=== PATIENT | female | born 1990 | race Caucasian/White ===

== ENCOUNTER → 2017-09-01 | Outpatient (CLI) | payer BC, OTHER ==
--- NOTE | 2017-09-02 10:58 | XR ---
EXAMINATION TYPE: XR chest 2V DATE OF EXAM: 09/01/2017 COMPARISON: NONE HISTORY: Chest tightness, left clavicle pain, and left shoulder pain for one week TECHNIQUE: Frontal and lateral views of the chest are obtained. FINDINGS: There is no focal air space opacity, pleural effusion, or pneumothorax seen. The cardiac silhouette size is within normal limits. The osseous structures are intact. IMPRESSION: No acute cardiopulmonary process.
== END | disposition home or self-care (01) ==
LOC: RADXRMAIN 15:35
PROVIDERS: ATTEND Family Medicine
DX: R07.9 Chest pain, unspecified (principal)
CPT/HCPCS: 71046

== ENCOUNTER 2017-09-02 19:51 | Emergency (ER) | payer BC, OTHER ==
--- NOTE | 2017-09-02 22:55 | ED ---
General Adult HPI - General Chief complaint: Upper Respiratory Infection Stated complaint: Chest pain Time Seen by Provider: 09/02/17 22:33 Source: patient, RN notes reviewed Mode of arrival: ambulatory Limitations: no limitations - History of Present Illness Initial comments: This is a 26-year-old female who presents to the ED with a chief complaint of chest tightness and shortness of breath which began 1 week ago and has been progressively worsening. The patient states that the pain was initially localized to her "left clavicle" and has spread across the chest to bilateral shoulders and upper back. The pain is constant. She states that she feels "the pain on both of her lungs" which causes her to feel restricted when breathing. She states that she becomes fatigued very easily with minimal activity. Chest radiographs taken yesterday were unremarkable. She was given a muscle relaxer which helped relieve some of the pain. She reports that her heart rate went to 110 while changing her child's diaper. The patient also complains of "leaking" urine shortly after she urinates. She denies nausea, abdominal pain, vomiting, diarrhea, fever or recent travel history. - Related Data Home Medications Medication Instructions Recorded Confirmed Ibuprofen [Motrin Ib] 400 mg PO Q6H PRN 09/02/17 09/02/17 Methocarbamol [Robaxin] 500 mg PO Q4H PRN 09/02/17 09/02/17 Allergies Allergy/AdvReac Type Severity Reaction Status Date / Time Sulfa (Sulfonamide Allergy Intermediate Anaphylaxis Verified 09/02/17 22:36 Antibiotics) Review of Systems ROS Statement: Those systems with pertinent positive or pertinent negative responses have been documented in the HPI. ROS Other: All systems not noted in ROS Statement are negative. Past Medical History Past Medical History: GERD/Reflux Additional Past Medical History / Comment(s): Pt states just dx with anemia, taking iron History of Any Multi-Drug Resistant Organisms: None Reported Past Surgical History: Section Additional Past Surgical History / Comment(s): Facial reconstruction on upper jaw. Past Anesthesia/Blood Transfusion Reactions: No Reported Reaction Past Psychological History: No Psychological Hx Reported, Anxiety, Depression Smoking Status: Current every day smoker Past Alcohol Use History: None Reported, Occasional Past Drug Use History: None Reported - Past Family History Mother Family Medical History: No Reported History Father Family Medical History: No Reported History General Exam General appearance: alert, in no apparent distress Head exam: Present: atraumatic, normocephalic, normal inspection Eye exam: Present: normal appearance, PERRL, EOMI. Absent: scleral icterus, conjunctival injection, periorbital swelling Neck exam: Present: normal inspection. Absent: tenderness, meningismus, lymphadenopathy Respiratory exam: Present: normal lung sounds bilaterally. Absent: respiratory distress, wheezes, rales, rhonchi, stridor Cardiovascular Exam: Present: regular rate, normal rhythm, normal heart sounds. Absent: systolic murmur, diastolic murmur, rubs, gallop, clicks GI/Abdominal exam: Present: soft, normal bowel sounds. Absent: distended, tenderness, guarding, rebound, rigid Extremities exam: Present: normal inspection, full ROM, normal capillary refill. Absent: tenderness, pedal edema, joint swelling, calf tenderness Back exam: Present: normal inspection. Absent: CVA tenderness (R), CVA tenderness (L) Neurological exam: Present: alert, oriented X3, CN II-XII intact Psychiatric exam: Present: normal affect, normal mood Skin exam: Present: warm, dry, intact, normal color. Absent: rash Course Vital Signs 09/02/17 09/02/17 20:23 23:37 Temperature 97.9 F Pulse Rate 79 77 Respiratory 16 18 Rate Blood Pressure 130/71 143/89 O2 Sat by Pulse 98 98 Oximetry EKG Findings - EKG Comments: EKG Findings:: EKG performed at 19:56 normal sinus rhythm with a rate of 70 ID 118 QRS 80 QTC is QTC 360/3 Medical Decision Making - Medical Decision Making 26-year-old female presented emergency Department with upper chest, back muscle spasms. Patient saw primary care physician for this at x-ray which is negative. Patient's labwork is unremarkable EKG unremarkable. We discussed continuation of anti-inflammatories, muscle relaxers. This may be viral related , we did discuss smoking cessation. 3 minutes. - Lab Data Result diagrams: 09/02/17 23:06 09/02/17 23:06 Lab Results 09/02/17 09/02/17 09/02/17 Range/Units 23:06 23:06 23:06 WBC 10.1 (3.8-10.6) k/uL RBC 4.12 (3.80-5.40) m/uL Hgb 12.3 (11.4-16.0) gm/dL Hct 37.8 (34.0-46.0) % MCV 91.6 (80.0-100.0) fL MCH 29.9 (25.0-35.0) pg MCHC 32.7 (31.0-37.0) g/dL RDW 14.3 (11.5-15.5) % Plt Count 230 (150-450) k/uL Neutrophils % 59 % Lymphocytes % 30 % Monocytes % 5 % Eosinophils % 4 % Basophils % 1 % Neutrophils # 5.9 (1.3-7.7) k/uL Lymphocytes # 3.1 (1.0-4.8) k/uL Monocytes # 0.5 (0-1.0) k/uL Eosinophils # 0.4 (0-0.7) k/uL Basophils # 0.1 (0-0.2) k/uL D-Dimer 0.27 (<0.60) mg/L FEU Sodium 141 (137-145) mmol/L Potassium 4.1 (3.5-5.1) mmol/L Chloride 104 (98-107) mmol/L Carbon Dioxide 24 (22-30) mmol/L Anion Gap 13 mmol/L BUN 14 (7-17) mg/dL Creatinine 0.60 (0.52-1.04) mg/dL Est GFR (MDRD) Af Amer >60 (>60 ml/min/1.73 sqM) Est GFR (MDRD) Non-Af >60 (>60 ml/min/1.73 sqM) Glucose 89 (74-99) mg/dL Calcium 9.6 (8.4-10.2) mg/dL Total Bilirubin 0.3 (0.2-1.3) mg/dL AST 30 (14-36) U/L ALT 63 H (9-52) U/L Alkaline Phosphatase 65 (38-126) U/L Total Protein 7.5 (6.3-8.2) g/dL Albumin 4.5 (3.5-5.0) g/dL Urine Color Urine Appearance (Clear) Urine pH (5.0-8.0) Ur Specific [place] (1.001-1.035) Urine Protein (Negative) Urine Glucose (UA) (Negative) Urine Ketones (Negative) Urine Blood (Negative) Urine Nitrite (Negative) Urine Bilirubin (Negative) Urine Urobilinogen (<2.0) mg/dL Ur Leukocyte Esterase (Negative) Urine RBC (0-5) /hpf Urine WBC (0-5) /hpf Ur Squamous Epith Cells (0-4) /hpf Urine Bacteria (None) /hpf Urine Mucus (None) /hpf 09/02/17 Range/Units 23:38 WBC (3.8-10.6) k/uL RBC (3.80-5.40) m/uL Hgb (11.4-16.0) gm/dL Hct (34.0-46.0) % MCV (80.0-100.0) fL MCH (25.0-35.0) pg MCHC (31.0-37.0) g/dL RDW (11.5-15.5) % Plt Count (150-450) k/uL Neutrophils % % Lymphocytes % % Monocytes % % Eosinophils % % Basophils % % Neutrophils # (1.3-7.7) k/uL Lymphocytes # (1.0-4.8) k/uL Monocytes # (0-1.0) k/uL Eosinophils # (0-0.7) k/uL Basophils # (0-0.2) k/uL D-Dimer (<0.60) mg/L FEU Sodium (137-145) mmol/L Potassium (3.5-5.1) mmol/L Chloride (98-107) mmol/L Carbon Dioxide (22-30) mmol/L Anion Gap mmol/L BUN (7-17) mg/dL Creatinine (0.52-1.04) mg/dL Est GFR (MDRD) Af Amer (>60 ml/min/1.73 sqM) Est GFR (MDRD) Non-Af (>60 ml/min/1.73 sqM) Glucose (74-99) mg/dL Calcium (8.4-10.2) mg/dL Total Bilirubin (0.2-1.3) mg/dL AST (14-36) U/L ALT (9-52) U/L Alkaline Phosphatase (38-126) U/L Total Protein (6.3-8.2) g/dL Albumin (3.5-5.0) g/dL Urine Color Yellow Urine Appearance Cloudy H (Clear) Urine pH 6.5 (5.0-8.0) Ur Specific [place] 1.019 (1.001-1.035) Urine Protein Trace H (Negative) Urine Glucose (UA) Negative (Negative) Urine Ketones Negative (Negative) Urine Blood Negative (Negative) Urine Nitrite Negative (Negative) Urine Bilirubin Negative (Negative) Urine Urobilinogen <2.0 (<2.0) mg/dL Ur Leukocyte Esterase Negative (Negative) Urine RBC 1 (0-5) /hpf Urine WBC 1 (0-5) /hpf Ur Squamous Epith Cells 13 H (0-4) /hpf Urine Bacteria Rare H (None) /hpf Urine Mucus Rare H (None) /hpf Disposition Clinical Impression: Chest wall pain, Back pain Disposition: HOME SELF-CARE Condition: Stable Instructions: Chest Wall Pain (ED) Additional Instructions: Please return to the Emergency Department if symptoms worsen or any other concerns. Referrals: Indu Khan MD [Primary Care Provider] - 1-2 days Time of Disposition: 23:59
[2017-09-02 23:29] LABS: Basophils # (A) 0.1 k/uL (0-0.2); Basophils % (A) 1 %; Eosinophils # (A) 0.4 k/uL (0-0.7); Eosinophils % (A) 4 %; HCT 37.8 % (34.0-46.0); HGB 12.3 gm/dL (11.4-16.0); Lymphocytes # (A) 3.1 k/uL (1.0-4.8); Lymphocytes % (A) 30 %; MCH 29.9 pg (25.0-35.0); MCHC 32.7 g/dL (31.0-37.0); MCV 91.6 fL (80.0-100.0); Mean Platelet Volume 8.8; Monocytes # (A) 0.5 k/uL (0-1.0); Monocytes % (A) 5 %; Neutrophils # (A) 5.9 k/uL (1.3-7.7); Neutrophils % (A) 59 %; Platelet Count 230 k/uL (150-450); RBC 4.12 m/uL (3.80-5.40); RDW 14.3 % (11.5-15.5); WBC 10.1 k/uL (3.8-10.6)
[2017-09-02 23:38] LABS: ALT 63 U/L (9-52); AST 30 U/L (14-36); Albumin 4.5 g/dL (3.5-5.0); Alkaline Phosphatase 65 U/L (38-126); Anion Gap 13 mmol/L; Blood Urea Nitrogen 14 mg/dL (7-17); Calcium 9.6 mg/dL (8.4-10.2); Carbon Dioxide 24 mmol/L (22-30); Chloride 104 mmol/L (98-107); Glucose 89 mg/dL (74-99); Potassium 4.1 mmol/L (3.5-5.1); Sodium 141 mmol/L (137-145); Total Bilirubin 0.3 mg/dL (0.2-1.3); Total Protein 7.5 g/dL (6.3-8.2)
[2017-09-02 23:48] LABS: Appearance,Urine Cloudy (Clear); Bacteria,Urine Rare /hpf; Bilirubin,Urine Negative (Negative); Blood,Urine Negative (Negative); Color,Urine Yellow; Glucose,Urine (UA) Negative (Negative); Ketones,Urine Negative (Negative); Leukocyte Esterase,Urine Negative (Negative); Mucus,Urine Rare /hpf; Nitrite,Urine Negative (Negative); PH, Urine 6.5 (5.0-8.0); Protein,Urine Trace (Negative); RBC,Urine 1 /hpf (0-5); Specific Gravity,Urine 1.019 (1.001-1.035); Squamous Epithelial Cell,Urine 13 /hpf (0-4); Urobilinogen,Urine <2.0 mg/dL (<2.0); WBC,Urine 1 /hpf (0-5)
[2017-09-03 00:14] VITALS: BP 134/78; PULSE 74; RESP 16; TEMP 97.5
== END 2017-09-03 00:15 | disposition home or self-care (01) ==
LOC: EC 19:51
DX: R07.89 Other chest pain (principal); M54.9 Dorsalgia, unspecified; M25.511 Pain in right shoulder; M25.512 Pain in left shoulder; F17.200 Nicotine dependence, unspecified, uncomplicated; Z88.2 Allergy status to sulfonamides
CPT/HCPCS: 36415; 80053; 81001; 85025; 85379; 93005; 99283

== ENCOUNTER 2018-06-16 20:05 | Emergency (ER) | payer BC, OTHER ==
[2018-06-16 20:19] VITALS: RESP 19; TEMP 98.5
[2018-06-16] MEDS ORDERED: KETOROLAC 30 MG/ML 1 ML VIAL IVP STA (21:25)
[2018-06-16] MEDS ORDERED: ASPIRIN 81 MG PO STA (21:25)
[2018-06-16] MEDS ORDERED: SODIUM CHLORIDE 0.9% 500 ML 500 ML IV STA (21:25)
--- NOTE | 2018-06-16 21:27 | ED ---
General Adult HPI - General Chief complaint: Chest Pain Stated complaint: Chest pain Time Seen by Provider: 06/16/18 21:04 Source: patient Mode of arrival: ambulatory Limitations: no limitations - History of Present Illness Initial comments: 27-year-old female with a past medical history of anemia presents to the emergency department for a chief complaint of chest pain. Patient states it is a sharp chest pain on the bilateral sides of the chest. No radiating pain down the arms. Patient states this has been ongoing for the past 5 days. Patient states when she wakes up in the morning she does not have any pain but throughout the day she does have pain. Patient is not sure what makes the pain better or worse. She denies physical activity making the pain worse. Patient states she did have a cough 2 weeks ago that has mostly resolved although she still does have mild rhinorrhea. No fevers or chills. Patient has no other complaints at this time including shortness of breath, chest pain, abdominal pain, nausea or vomiting, headache, or visual changes. - Related Data Home Medications Medication Instructions Recorded Confirmed No Known Home Medications 06/16/18 06/16/18 Allergies Allergy/AdvReac Type Severity Reaction Status Date / Time Sulfa (Sulfonamide Allergy Intermediate Anaphylaxis Verified 06/16/18 21:04 Antibiotics) Review of Systems ROS Statement: Those systems with pertinent positive or pertinent negative responses have been documented in the HPI. ROS Other: All systems not noted in ROS Statement are negative. Past Medical History Past Medical History: No Reported History, GERD/Reflux Additional Past Medical History / Comment(s): Pt states just dx with anemia, taking iron History of Any Multi-Drug Resistant Organisms: None Reported Past Surgical History: Section Additional Past Surgical History / Comment(s): Facial reconstruction on upper jaw. Past Anesthesia/Blood Transfusion Reactions: No Reported Reaction Past Psychological History: Anxiety Smoking Status: Former smoker Past Alcohol Use History: Occasional Past Drug Use History: None Reported - Past Family History Mother Family Medical History: No Reported History Father Family Medical History: No Reported History General Exam Limitations: no limitations General appearance: alert, in no apparent distress Head exam: Present: atraumatic, normocephalic, normal inspection Eye exam: Present: normal appearance, PERRL, EOMI. Absent: scleral icterus, conjunctival injection, periorbital swelling ENT exam: Present: normal exam, mucous membranes moist Neck exam: Present: normal inspection, full ROM. Absent: tenderness, meningismus, lymphadenopathy Respiratory exam: Present: normal lung sounds bilaterally. Absent: respiratory distress, wheezes, rales, rhonchi, stridor Cardiovascular Exam: Present: regular rate, normal rhythm, normal heart sounds. Absent: systolic murmur, diastolic murmur, rubs, gallop, clicks Neurological exam: Present: alert, oriented X3, CN II-XII intact Psychiatric exam: Present: normal affect, normal mood Course Vital Signs 06/16/18 20:16 Temperature 98.5 F Pulse Rate 109 H Respiratory 19 Rate Blood Pressure 121/94 O2 Sat by Pulse 98 Oximetry EKG Findings - EKG Comments: EKG Findings:: Normal sinus rhythm, ventricular rate 83, [place] interval 168, QTC 420, no evidence of ST elevation or depression Medical Decision Making - Medical Decision Making 27 year old female with a past medical history of anemia presents to the emergency department for a chief clinic chest pain. She states it is a sharp chest pain on the bilateral sides of the chest. No radiating pain down the arms. This has been for about 5 days. Patient states the pain worsens throat the day and is better when she wakes up in the morning. She denies physical activity making the pain worse. Vitals are stable, patient is mildly tachycardic on presentation with a heart rate of 109 which did normalize throughout her stay. CBC and CMP are unremarkable. Troponin is less than 0.012 , cardiac profile negative. Chest x-ray shows a normal chest. D-dimer was added as patient was initially tachycardic which was 0.21. No concern for PE at this time. Patient denies any chance of . At this time patient feels comfortable following up outpatient. She will return here if she has any worsening symptoms. - Lab Data Result diagrams: 06/16/18 22:09 06/16/18 22:09 Lab Results 06/16/18 06/16/18 06/16/18 Range/Units 22:09 22:09 22:09 WBC 8.1 (3.8-10.6) k/uL RBC 4.14 (3.80-5.40) m/uL Hgb 12.4 (11.4-16.0) gm/dL Hct 37.4 (34.0-46.0) % MCV 90.2 (80.0-100.0) fL MCH 30.0 (25.0-35.0) pg MCHC 33.2 (31.0-37.0) g/dL RDW 12.3 (11.5-15.5) % Plt Count 252 (150-450) k/uL Neutrophils % 51 % Lymphocytes % 39 % Monocytes % 5 % Eosinophils % 3 % Basophils % 0 % Neutrophils # 4.1 (1.3-7.7) k/uL Lymphocytes # 3.2 (1.0-4.8) k/uL Monocytes # 0.4 (0-1.0) k/uL Eosinophils # 0.2 (0-0.7) k/uL Basophils # 0.0 (0-0.2) k/uL PT (9.0-12.0) sec INR (<1.2) APTT (22.0-30.0) sec D-Dimer (<0.60) mg/L FEU Sodium 139 (137-145) mmol/L Potassium 4.1 (3.5-5.1) mmol/L Chloride 106 (98-107) mmol/L Carbon Dioxide 23 (22-30) mmol/L Anion Gap 10 mmol/L BUN 18 H (7-17) mg/dL Creatinine 0.65 (0.52-1.04) mg/dL Est GFR (CKD-EPI)AfAm >90 (>60 ml/min/1.73 sqM) Est GFR (CKD-EPI)NonAf >90 (>60 ml/min/1.73 sqM) Glucose 97 (74-99) mg/dL Calcium 9.4 (8.4-10.2) mg/dL Magnesium 2.0 (1.6-2.3) mg/dL Total Bilirubin 0.3 (0.2-1.3) mg/dL AST 28 (14-36) U/L ALT 49 (9-52) U/L Alkaline Phosphatase 61 (38-126) U/L Total Creatine Kinase 68 (30-135) U/L CK-MB (CK-2) 0.3 (0.0-2.4) ng/mL CK-MB (CK-2) Rel Index 0.4 Troponin I <0.012 (0.000-0.034) ng/mL Total Protein 7.5 (6.3-8.2) g/dL Albumin 4.4 (3.5-5.0) g/dL 06/16/18 06/16/18 Range/Units 22:09 22:09 WBC (3.8-10.6) k/uL RBC (3.80-5.40) m/uL Hgb (11.4-16.0) gm/dL Hct (34.0-46.0) % MCV (80.0-100.0) fL MCH (25.0-35.0) pg MCHC (31.0-37.0) g/dL RDW (11.5-15.5) % Plt Count (150-450) k/uL Neutrophils % % Lymphocytes % % Monocytes % % Eosinophils % % Basophils % % Neutrophils # (1.3-7.7) k/uL Lymphocytes # (1.0-4.8) k/uL Monocytes # (0-1.0) k/uL Eosinophils # (0-0.7) k/uL Basophils # (0-0.2) k/uL PT 9.8 (9.0-12.0) sec INR 1.0 (<1.2) APTT 24.4 (22.0-30.0) sec D-Dimer 0.21 (<0.60) mg/L FEU Sodium (137-145) mmol/L Potassium (3.5-5.1) mmol/L Chloride (98-107) mmol/L Carbon Dioxide (22-30) mmol/L Anion Gap mmol/L BUN (7-17) mg/dL Creatinine (0.52-1.04) mg/dL Est GFR (CKD-EPI)AfAm (>60 ml/min/1.73 sqM) Est GFR (CKD-EPI)NonAf (>60 ml/min/1.73 sqM) Glucose (74-99) mg/dL Calcium (8.4-10.2) mg/dL Magnesium (1.6-2.3) mg/dL Total Bilirubin (0.2-1.3) mg/dL AST (14-36) U/L ALT (9-52) U/L Alkaline Phosphatase (38-126) U/L Total Creatine Kinase (30-135) U/L CK-MB (CK-2) (0.0-2.4) ng/mL CK-MB (CK-2) Rel Index Troponin I (0.000-0.034) ng/mL Total Protein (6.3-8.2) g/dL Albumin (3.5-5.0) g/dL Disposition Clinical Impression: Atypical chest pain Disposition: HOME SELF-CARE Condition: Good Instructions: Chest Pain (ED) Additional Instructions: Please take Motrin and Tylenol for pain. Please follow-up with primary care in 1-2 days. Please return here to the emergency department if you have any worsening symptoms. Is patient prescribed a controlled substance at d/c from ED?: No Referrals: Indu Khan MD [Primary Care Provider] - 1-2 days Time of Disposition: 00:28
--- NOTE | 2018-06-16 22:48 | XR ---
EXAMINATION TYPE: XR chest 2V DATE OF EXAM: 06/16/2018 COMPARISON: September 01, 2017 HISTORY: Chest pain for 5 days TECHNIQUE: Frontal and lateral views of the chest are obtained. FINDINGS: Heart and mediastinum are normal. Lungs are clear. Diaphragm is normal. Bony thorax appear s normal. IMPRESSION: Normal chest. No change.
[2018-06-16 23:16] LABS: Basophils % (A) 0 %; Eosinophils # (A) 0.2 k/uL (0-0.7); Eosinophils % (A) 3 %; HCT 37.4 % (34.0-46.0); HGB 12.4 gm/dL (11.4-16.0); Lymphocytes # (A) 3.2 k/uL (1.0-4.8); Lymphocytes % (A) 39 %; MCHC 33.2 g/dL (31.0-37.0); MCV 90.2 fL (80.0-100.0); Mean Platelet Volume 8.1; Monocytes # (A) 0.4 k/uL (0-1.0); Monocytes % (A) 5 %; Neutrophils # (A) 4.1 k/uL (1.3-7.7); Neutrophils % (A) 51 %; Platelet Count 252 k/uL (150-450); RBC 4.14 m/uL (3.80-5.40); RDW 12.3 % (11.5-15.5); WBC 8.1 k/uL (3.8-10.6)
[2018-06-16 23:21] LABS: Partial Thromboplastin Time 24.4 sec (22.0-30.0); Prothrombin Time 9.8 sec (9.0-12.0)
[2018-06-16 23:28] LABS: ALT 49 U/L (9-52); AST 28 U/L (14-36); Albumin 4.4 g/dL (3.5-5.0); Alkaline Phosphatase 61 U/L (38-126); Anion Gap 10 mmol/L; Blood Urea Nitrogen 18 mg/dL (7-17); Calcium 9.4 mg/dL (8.4-10.2); Carbon Dioxide 23 mmol/L (22-30); Chloride 106 mmol/L (98-107); Glucose 97 mg/dL (74-99); Potassium 4.1 mmol/L (3.5-5.1); Sodium 139 mmol/L (137-145); Total Bilirubin 0.3 mg/dL (0.2-1.3); Total Protein 7.5 g/dL (6.3-8.2)
[2018-06-16 23:34] LABS: Creatine Kinase 68 U/L (30-135)
[2018-06-16 23:48] LABS: Creatine Kinase MB 0.3 ng/mL (0.0-2.4); Troponin I <0.012 ng/mL (0.000-0.034)
[2018-06-17 00:49] VITALS: BP 107/70; PULSE 75
== END 2018-06-17 00:54 | disposition home or self-care (01) ==
LOC: EC 20:05
DX: R07.89 Other chest pain (principal); R05 Cough; Z87.891 Personal history of nicotine dependence; Z88.2 Allergy status to sulfonamides
CPT/HCPCS: 36415; 93005; 85379; 80053; 82550; 82553; 83735; 84484; 85025; 85610; 85730; 71046; 99285; 96374; J1885

== ENCOUNTER 2019-01-25 15:50 | Inpatient (IN) | payer OTHER ==
[2019-01-25] MEDS ORDERED: FAMOTIDINE 20 MG/2 ML VIAL IV STA (16:35)
[2019-01-25] MEDS ORDERED: MORPHINE SULFATE 4 MG/ML SYRINGE IV STA (16:35)
[2019-01-25] MEDS ORDERED: ONDANSETRON 4 MG/2 ML VIAL IVP STA ×2 (16:35→20:31)
--- NOTE | 2019-01-25 16:38 | ED ---
General Adult HPI - General Chief complaint: Abdominal Pain Stated complaint: abd pain Time Seen by Provider: 01/25/19 16:29 Source: patient, RN notes reviewed, old records reviewed (Reviewed records from [facility] today including negative urine hCG.) Mode of arrival: wheelchair Limitations: no limitations - History of Present Illness Initial comments: Patient is a pleasant 28-year-old female presenting to the emergency Department with abdominal discomfort. Patient did see her doctor today and was advised to come to the emergency department. Patient states they did do testing there which was negative for . Patient states she started this morning with lower abdominal discomfort. Discomfort was fairly sudden onset and has been present most the day. Discomfort was not as bad throughout most the day however started getting worse again recently. Patient does have nausea. Patient vomited once earlier. No constipation or diarrhea. Minimal dysuria. No hematuria. No history of similar symptoms previously. Patient is - Related Data Home Medications Medication Instructions Recorded Confirmed Acetaminophen Tab [Tylenol] 500 mg PO Q6H PRN 01/25/19 01/25/19 Ibuprofen [Motrin Ib] 800 mg PO Q4H PRN 01/25/19 01/25/19 Allergies Allergy/AdvReac Type Severity Reaction Status Date / Time Sulfa (Sulfonamide Allergy Intermediate Anaphylaxis Verified 01/25/19 17:08 Antibiotics) Review of Systems ROS Statement: Those systems with pertinent positive or pertinent negative responses have been documented in the HPI. ROS Other: All systems not noted in ROS Statement are negative. Constitutional: Reports: fever (Fever of 100 earlier today. Patient did take antipyretic.) Eyes: Denies: eye pain ENT: Denies: ear pain Respiratory: Denies: cough Cardiovascular: Denies: chest pain Endocrine: Denies: fatigue Gastrointestinal: Reports: abdominal pain, nausea, vomiting. Denies: diarrhea, constipation Genitourinary: Reports: dysuria (mild). Denies: hematuria Musculoskeletal: Denies: back pain Skin: Denies: rash Neurological: Denies: weakness Past Medical History Past Medical History: No Reported History, GERD/Reflux Additional Past Medical History / Comment(s): Pt states just dx with anemia, taking iron History of Any Multi-Drug Resistant Organisms: None Reported Past Surgical History: Section Additional Past Surgical History / Comment(s): Facial reconstruction on upper jaw. Past Anesthesia/Blood Transfusion Reactions: No Reported Reaction Past Psychological History: Anxiety Smoking Status: Current every day smoker Past Alcohol Use History: Occasional Past Drug Use History: Marijuana - Past Family History Mother Family Medical History: No Reported History Father Family Medical History: No Reported History General Exam Limitations: no limitations General appearance: alert Head exam: Present: atraumatic Eye exam: Present: normal appearance, PERRL ENT exam: Present: normal oropharynx Neck exam: Present: normal inspection Respiratory exam: Present: normal lung sounds bilaterally Cardiovascular Exam: Present: regular rate, normal rhythm Expanded Peripheral pulses: 2+: Posterior Tibialis (R), Posterior Tibialis (L) GI/Abdominal exam: Present: soft, tenderness (Moderate tenderness midline of the epigastric, umbilical and suprapubic regions.), normal bowel sounds. Absent: distended, guarding, rebound, rigid, pulsatile mass External exam: Present: normal external exam (RN Nithya is present) Speculum exam: Present: vaginal bleeding (Minimal) By manual exam: Present: normal by manual exam. Absent: cervical motion tenderness, adnexal tenderness, adnexal mass Extremities exam: Present: normal inspection Back exam: Absent: CVA tenderness (R), CVA tenderness (L) Neurological exam: Present: alert Psychiatric exam: Present: normal affect, normal mood Skin exam: Present: normal color Course Vital Signs 01/25/19 01/25/19 01/25/19 16:05 16:20 16:50 Temperature 98.4 F Pulse Rate 68 89 Respiratory 18 16 Rate Blood Pressure 72/46 98/52 96/59 O2 Sat by Pulse 98 96 Oximetry 01/25/19 01/25/19 01/25/19 17:33 18:31 21:00 Temperature Pulse Rate 80 78 88 Respiratory 18 18 16 Rate Blood Pressure 109/58 98/45 107/54 O2 Sat by Pulse 98 99 96 Oximetry - Reevaluation(s) Reevaluation #1: 01/25/19 22:37 Patient is again reevaluated and resting comfortably in bed. Patient states discomfort is not severe at this time however is starting to worsen some. Patient states Dilaudid does seem to help her. Patient states the morphine is not helping much. Patient and family are updated on results and plan. Case was earlier discussed in detail with Dr. Alfredo, who will admit covering for Dr. barnes. He does request GI consult. 01/25/19 22:43 Case was discussed with Dr. Quintanilla, who will consult. He does request repeat beta hCG and CBC in the morning. 01/25/19 22:47 Case again discussed with Dr. Alfredo who recommends Zosyn and consult with GI and [employer]. Case again discussed with Dr. Quintanilla who does recommend checking CBC at 0200 as well. EKG Findings - EKG Comments: EKG Findings:: Normal sinus rhythm at 80. VT 156. QRS 88. QT 388. QTC 447. Normal axis. Normal QRS. No acute ST change. Medical Decision Making - Lab Data Result diagrams: 01/25/19 16:31 01/25/19 16:31 Lab Results 01/25/19 01/25/19 01/25/19 Range/Units 16:31 16:31 16:31 WBC 13.0 H (3.8-10.6) k/uL RBC 4.12 (3.80-5.40) m/uL Hgb 10.2 L (11.4-16.0) gm/dL Hct 32.5 L (34.0-46.0) % MCV 78.8 L (80.0-100.0) fL MCH 24.7 L (25.0-35.0) pg MCHC 31.3 (31.0-37.0) g/dL RDW 18.6 H (11.5-15.5) % Plt Count 274 (150-450) k/uL Neutrophils % 71 % Lymphocytes % 23 % Monocytes % 4 % Eosinophils % 1 % Basophils % 0 % Neutrophils # 9.2 H (1.3-7.7) k/uL Lymphocytes # 3.0 (1.0-4.8) k/uL Monocytes # 0.5 (0-1.0) k/uL Eosinophils # 0.1 (0-0.7) k/uL Basophils # 0.0 (0-0.2) k/uL Anisocytosis Slight Microcytosis Slight PT (9.0-12.0) sec INR (<1.2) APTT (22.0-30.0) sec Sodium 139 (137-145) mmol/L Potassium 3.8 (3.5-5.1) mmol/L Chloride 107 (98-107) mmol/L Carbon Dioxide 20 L (22-30) mmol/L Anion Gap 12 mmol/L BUN 16 (7-17) mg/dL Creatinine 0.55 (0.52-1.04) mg/dL Est GFR (CKD-EPI)AfAm >90 (>60 ml/min/1.73 sqM) Est GFR (CKD-EPI)NonAf >90 (>60 ml/min/1.73 sqM) Glucose 125 H (74-99) mg/dL Plasma Lactic Acid Harris 1.1 (0.7-2.0) mmol/L Calcium 9.3 (8.4-10.2) mg/dL Total Bilirubin 0.4 (0.2-1.3) mg/dL AST 19 (14-36) U/L ALT 36 (9-52) U/L Alkaline Phosphatase 73 (38-126) U/L Total Protein 7.0 (6.3-8.2) g/dL Albumin 4.2 (3.5-5.0) g/dL HCG, Qual HCG, Quant mIU/mL Urine Color Urine Appearance (Clear) Urine pH (5.0-8.0) Ur Specific [place] (1.001-1.035) Urine Protein (Negative) Urine Glucose (UA) (Negative) Urine Ketones (Negative) Urine Blood (Negative) Urine Nitrite (Negative) Urine Bilirubin (Negative) Urine Urobilinogen (<2.0) mg/dL Ur Leukocyte Esterase (Negative) Urine RBC (0-5) /hpf Urine WBC (0-5) /hpf Ur Squamous Epith Cells (0-4) /hpf Calcium Oxalate Crystal (None) /hpf Urine Mucus (None) /hpf 01/25/19 01/25/19 01/25/19 Range/Units 16:31 16:31 17:30 WBC (3.8-10.6) k/uL RBC (3.80-5.40) m/uL Hgb (11.4-16.0) gm/dL Hct (34.0-46.0) % MCV (80.0-100.0) fL MCH (25.0-35.0) pg MCHC (31.0-37.0) g/dL RDW (11.5-15.5) % Plt Count (150-450) k/uL Neutrophils % % Lymphocytes % % Monocytes % % Eosinophils % % Basophils % % Neutrophils # (1.3-7.7) k/uL Lymphocytes # (1.0-4.8) k/uL Monocytes # (0-1.0) k/uL Eosinophils # (0-0.7) k/uL Basophils # (0-0.2) k/uL Anisocytosis Microcytosis PT 10.1 (9.0-12.0) sec INR 0.9 (<1.2) APTT 19.8 L (22.0-30.0) sec Sodium (137-145) mmol/L Potassium (3.5-5.1) mmol/L Chloride (98-107) mmol/L Carbon Dioxide (22-30) mmol/L Anion Gap mmol/L BUN (7-17) mg/dL Creatinine (0.52-1.04) mg/dL Est GFR (CKD-EPI)AfAm (>60 ml/min/1.73 sqM) Est GFR (CKD-EPI)NonAf (>60 ml/min/1.73 sqM) Glucose (74-99) mg/dL Plasma Lactic Acid Harris (0.7-2.0) mmol/L Calcium (8.4-10.2) mg/dL Total Bilirubin (0.2-1.3) mg/dL AST (14-36) U/L ALT (9-52) U/L Alkaline Phosphatase (38-126) U/L Total Protein (6.3-8.2) g/dL Albumin (3.5-5.0) g/dL HCG, Qual HCG, Quant 53.5 mIU/mL Urine Color Yellow Urine Appearance Cloudy H (Clear) Urine pH 6.0 (5.0-8.0) Ur Specific [place] 1.036 H (1.001-1.035) Urine Protein 1+ H (Negative) Urine Glucose (UA) Negative (Negative) Urine Ketones Negative (Negative) Urine Blood Negative (Negative) Urine Nitrite Negative (Negative) Urine Bilirubin Negative (Negative) Urine Urobilinogen <2.0 (<2.0) mg/dL Ur Leukocyte Esterase Trace H (Negative) Urine RBC 6 H (0-5) /hpf Urine WBC 4 (0-5) /hpf Ur Squamous Epith Cells 26 H (0-4) /hpf Calcium Oxalate Crystal Many H (None) /hpf Urine Mucus Many H (None) /hpf 01/25/19 Range/Units 17:30 WBC (3.8-10.6) k/uL RBC (3.80-5.40) m/uL Hgb (11.4-16.0) gm/dL Hct (34.0-46.0) % MCV (80.0-100.0) fL MCH (25.0-35.0) pg MCHC (31.0-37.0) g/dL RDW (11.5-15.5) % Plt Count (150-450) k/uL Neutrophils % % Lymphocytes % % Monocytes % % Eosinophils % % Basophils % % Neutrophils # (1.3-7.7) k/uL Lymphocytes # (1.0-4.8) k/uL Monocytes # (0-1.0) k/uL Eosinophils # (0-0.7) k/uL Basophils # (0-0.2) k/uL Anisocytosis Microcytosis PT (9.0-12.0) sec INR (<1.2) APTT (22.0-30.0) sec Sodium (137-145) mmol/L Potassium (3.5-5.1) mmol/L Chloride (98-107) mmol/L Carbon Dioxide (22-30) mmol/L Anion Gap mmol/L BUN (7-17) mg/dL Creatinine (0.52-1.04) mg/dL Est GFR (CKD-EPI)AfAm (>60 ml/min/1.73 sqM) Est GFR (CKD-EPI)NonAf (>60 ml/min/1.73 sqM) Glucose (74-99) mg/dL Plasma Lactic Acid Harris (0.7-2.0) mmol/L Calcium (8.4-10.2) mg/dL Total Bilirubin (0.2-1.3) mg/dL AST (14-36) U/L ALT (9-52) U/L Alkaline Phosphatase (38-126) U/L Total Protein (6.3-8.2) g/dL Albumin (3.5-5.0) g/dL HCG, Qual Detected HCG, Quant mIU/mL Urine Color Urine Appearance (Clear) Urine pH (5.0-8.0) Ur Specific [place] (1.001-1.035) Urine Protein (Negative) Urine Glucose (UA) (Negative) Urine Ketones (Negative) Urine Blood (Negative) Urine Nitrite (Negative) Urine Bilirubin (Negative) Urine Urobilinogen (<2.0) mg/dL Ur Leukocyte Esterase (Negative) Urine RBC (0-5) /hpf Urine WBC (0-5) /hpf Ur Squamous Epith Cells (0-4) /hpf Calcium Oxalate Crystal (None) /hpf Urine Mucus (None) /hpf - Radiology Data Radiology results: report reviewed (ET scan of the abdomen pelvis does show mild to moderate ascites. Cause is not evident. Suggestive of mild large bowel wall thickening the transverse colon that could be related to a nonspecific colitis. Pelvic ultrasound shows no adnexal mass. No evidence of intrauterine gestational sac. There is some free fluid in the pelvis.), image reviewed (C hest x-ray reveals no acute process) Disposition Clinical Impression: Abdominal pain Disposition: ADMITTED IP TO THIS HOSP Is patient prescribed a controlled substance at d/c from ED?: No Referrals: Indu Khan MD [Primary Care Provider] - 1-2 days Decision Time: 22:48
[2019-01-25] MEDS: SODIUM CHLORIDE 0.9% 500 ML 500 ML IV SCH (16:52)
[2019-01-25 16:55] LABS: Anisocytosis Slight; Basophils % (A) 0 %; Eosinophils # (A) 0.1 k/uL (0-0.7); Eosinophils % (A) 1 %; HCT 32.5 % (34.0-46.0); HGB 10.2 gm/dL (11.4-16.0); Lymphocytes % (A) 23 %; MCH 24.7 pg (25.0-35.0); MCHC 31.3 g/dL (31.0-37.0); MCV 78.8 fL (80.0-100.0); Mean Platelet Volume 8.6; Microcytosis Slight; Monocytes # (A) 0.5 k/uL (0-1.0); Monocytes % (A) 4 %; Neutrophils # (A) 9.2 k/uL (1.3-7.7); Neutrophils % (A) 71 %; Platelet Count 274 k/uL (150-450); RBC 4.12 m/uL (3.80-5.40); RDW 18.6 % (11.5-15.5)
[2019-01-25 17:07] LABS: ALT 36 U/L (9-52); AST 19 U/L (14-36); African American GFR (CKD) >90 (>60 ml/min/1.73 sqM); Albumin 4.2 g/dL (3.5-5.0); Alkaline Phosphatase 73 U/L (38-126); Anion Gap 12 mmol/L; Blood Urea Nitrogen 16 mg/dL (7-17); Calcium 9.3 mg/dL (8.4-10.2); Carbon Dioxide 20 mmol/L (22-30); Chloride 107 mmol/L (98-107); Glucose 125 mg/dL (74-99); INR 0.9 (<1.2); Potassium 3.8 mmol/L (3.5-5.1); Prothrombin Time 10.1 sec (9.0-12.0); Sodium 139 mmol/L (137-145); Total Bilirubin 0.4 mg/dL (0.2-1.3)
[2019-01-25 17:17] LABS: Partial Thromboplastin Time 19.8 sec (22.0-30.0)
--- NOTE | 2019-01-25 17:25 | XR ---
EXAMINATION TYPE: XR chest 2V DATE OF EXAM: 01/25/2019 COMPARISON: 06/16/2018 HISTORY: Abdominal pain TECHNIQUE: Frontal and lateral views of the chest are obtained. FINDINGS: Heart and mediastinum are normal. Lungs are clear. Diaphragm is normal. Bony thorax is int act. IMPRESSION: Normal chest. No change.
[2019-01-25] MEDS ORDERED: HYDROmorphone 1 MG/ML 1 ML SYRINGE IVP STA ×2 (17:37→19:47)
--- NOTE | 2019-01-25 18:30 | CT ---
EXAMINATION TYPE: CT abdomen pelvis w con DATE OF EXAM: 01/25/2019 COMPARISON: None HISTORY: Worsening abdominal pain CT DLP: 950.1 mGycm Automated exposure control for dose reduction was used. TECHNIQUE: Helical acquisition of images was performed from the lung bases through the pelvis. CONTRAST: Performed without Oral Contrast and with IV Contrast, patient injected with 100 mL of Isovue 300. FINDINGS: There is subsegmental atelectasis at the lung bases. There is no pleural effusion. There is no perica rdial effusion. Liver spleen pancreas gallbladder appear normal. Bile ducts are not dilated. Stomach has normal size and contour. There is free fluid around the liver and spleen. There is fluid in the paracolic gutters. There is fr ee fluid in the pelvis. There is no adrenal mass. Kidneys show satisfactory contrast opacification. There is no hydronephrosi s. There is no retroperitoneal adenopathy. Uterus is anteverted. Bladder distends smoothly. There is no free air. There is no sign of mesenteric edema. There is no evidence of a bowel obstructi on. There is suggestion of a mild wall thickening of the large bowel in particular the transverse col on. There is no inguinal hernia. Appendix is not definitely seen. There is no sign of thickened appendix. Lumbar vertebra have normal spacing and alignment. Bony pelvis is intact. There is no lumbar paty jagdeep fracture. IMPRESSION: THERE IS MILD TO MODERATE ABDOMINAL ASCITES. CAUSE FOR THE ASCITES IS NOT EVIDENT. There is suggestio n of mild large bowel wall thickening in the transverse colon that could relate to a mild nonspecific colitis.
[2019-01-25 18:46] LABS: Appearance,Urine Cloudy (Clear); Bilirubin,Urine Negative (Negative); Blood,Urine Negative (Negative); Calcium Oxalate Crystals,Urine Many /hpf; Color,Urine Yellow; Glucose,Urine (UA) Negative (Negative); Ketones,Urine Negative (Negative); Leukocyte Esterase,Urine Trace (Negative); Mucus,Urine Many /hpf; Nitrite,Urine Negative (Negative); Protein,Urine 1+ (Negative); RBC,Urine 6 /hpf (0-5); Specific Gravity,Urine 1.036 (1.001-1.035); Squamous Epithelial Cell,Urine 26 /hpf (0-4); Urobilinogen,Urine <2.0 mg/dL (<2.0); WBC,Urine 4 /hpf (0-5)
--- NOTE | 2019-01-25 21:55 | US ---
EXAMINATION TYPE: Transabdominal DATE OF EXAM: 01/25/2019 9:25 PM COMPARISON: CT CLINICAL HISTORY: Pain. Pelvic pain x 12 hours. Vomiting. A3. EXAM PERFORMED: Transvaginal (TV) and Transabdominal (TA) EXAM MEASUREMENTS: GESTATIONAL AGE / DATING Physician Established: Not yet established Dates by LMP: 01/23/2019 (0 weeks/2 days) EDC: 10/30/2019 Dates by First Scan: This is first scan Dates by Current Scan for: No IUP seen at this time MATERNAL ANATOMY Moderate amount of complex free fluid noted throughout pelvis. Uterus: 9.7 x 4.8 x 4.4 cm. Small amount of fluid seen in cervix area. Endometrium: 0.80 cm. Right Ovary: 3.8 x 2.2 x 2.0 cm. Follicles seen Left Ovary: Not seen Post CDS / Adnexa: Complex fluid/ debris seen. Presence of free fluid: yes complex throughout pelvis and bilateral adnexa Presence of corpus luteal cyst: none seen GESTATION / SURVEY IUP: No IUP seen at this time Date of LMP: 01/23/2019 Beta HcG (if available): 53.5 IMPRESSION: No adnexal mass. No evidence of intrauterine gestational sac. Free fluid in the pelvis.
[2019-01-25] MEDS ORDERED: HYDROmorphone 1 MG/ML 1 ML SYRINGE IVP PRN (22:48)
[2019-01-25] MEDS ORDERED: NALOXONE 0.4 MG/ML 1 ML VIAL IV PRN (22:48)
[2019-01-25] MEDS: SODIUM CHLORIDE 0.9% 1,000 ML IV SCH (23:17)
[2019-01-25] MEDS: PANTOPRAZOLE 40 MG/10 ML VIAL IV SCH (23:20)
[2019-01-26 00:07] VITALS: BMI 35.6
[2019-01-26] MEDS ORDERED: MELATONIN 5 MG TABLET PO PRN (00:59)
[2019-01-26] MEDS: HYDROmorphone 1 MG/ML 1 ML SYRINGE IVP PRN ×7 (01:10→20:46)
[2019-01-26 02:04] LABS: Anisocytosis Slight; Basophils % (A) 0 %; Eosinophils # (A) 0.1 k/uL (0-0.7); Eosinophils % (A) 1 %; HCT 26.5 % (34.0-46.0); Lymphocytes # (A) 2.3 k/uL (1.0-4.8); Lymphocytes % (A) 23 %; MCH 24.5 pg (25.0-35.0); MCHC 30.4 g/dL (31.0-37.0); MCV 80.6 fL (80.0-100.0); Mean Platelet Volume 8.9; Microcytosis Slight; Monocytes # (A) 0.4 k/uL (0-1.0); Monocytes % (A) 4 %; Neutrophils % (A) 70 %; Platelet Count 195 k/uL (150-450); RBC 3.29 m/uL (3.80-5.40); RDW 18.4 % (11.5-15.5)
[2019-01-26 02:35] LABS: HGB 8.1 gm/dL (11.4-16.0)
[2019-01-26] MEDS: SODIUM CHLORIDE 0.9% 1,000 ML IV SCH ×2 (05:09→19:51)
[2019-01-26 06:50] LABS: Anisocytosis Slight; Basophils % (A) 0 %; Eosinophils # (A) 0.1 k/uL (0-0.7); Eosinophils % (A) 1 %; HCT 24.7 % (34.0-46.0); HGB 7.9 gm/dL (11.4-16.0); Hypochromasia Moderate; Lymphocytes # (A) 2.5 k/uL (1.0-4.8); Lymphocytes % (A) 29 %; MCH 25.5 pg (25.0-35.0); MCHC 31.8 g/dL (31.0-37.0); MCV 80.3 fL (80.0-100.0); Mean Platelet Volume 9.8; Microcytosis Slight; Monocytes # (A) 0.4 k/uL (0-1.0); Monocytes % (A) 4 %; Neutrophils # (A) 5.4 k/uL (1.3-7.7); Neutrophils % (A) 63 %; Platelet Count 180 k/uL (150-450); RBC 3.08 m/uL (3.80-5.40); RDW 18.4 % (11.5-15.5); WBC 8.5 k/uL (3.8-10.6)
[2019-01-26 07:03] LABS: ALT 31 U/L (9-52); AST 15 U/L (14-36); African American GFR (CKD) >90 (>60 ml/min/1.73 sqM); Albumin 3.4 g/dL (3.5-5.0); Alkaline Phosphatase 52 U/L (38-126); Anion Gap 6 mmol/L; Blood Urea Nitrogen 11 mg/dL (7-17); Calcium 8.1 mg/dL (8.4-10.2); Carbon Dioxide 26 mmol/L (22-30); Chloride 107 mmol/L (98-107); Glucose 95 mg/dL (74-99); Potassium 4.1 mmol/L (3.5-5.1); Sodium 139 mmol/L (137-145); Total Bilirubin 0.6 mg/dL (0.2-1.3); Total Protein 5.9 g/dL (6.3-8.2)
[2019-01-26 07:19] LABS: HCG,Quantitative Serum 45.4 mIU/mL
[2019-01-26] MEDS: PANTOPRAZOLE 40 MG/10 ML VIAL IV SCH (08:17)
--- NOTE | 2019-01-26 08:30 | P.OBCN ---
History of Present Illness Consult date: 01/26/19 Requesting physician: Fouzia Alfredo Reason for consult: other (Abdominal pain, positive test) Chief complaint: Acute abdominal pain History of present illness: The patient is a 28-year-old 4 para 1021 admitted through the emergency room at approximately 4 weeks of gestation by last menstrual period though she did not know that she was or intend to be . 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 Over the course of the day, the pain spread throughout her abdomen and particularly into the bilateral upper quadrants. She then presented to the emergency room for evaluation. She did not have any significant nausea or anorexia during that t angelika and reported she had normal bowel function all afternoon. In the emergency room, she was found to have a positive test with beta hCG at 53. Computed tomography scan of the abdomen and pelvis demonstrated some free fluid throughout the abdomen but primarily in the bilateral upper quadrants. There was no evidence of any pathology in the pelvis on CT. She then underwent pelvic ultrasound which again failed to show any pathology in the pelvis with no evidence of intrauterine or extrauterine gestational sac nor any masses in the adnexa. She was admitted for observation. Initial hemoglobin in the emergency room of 10.1 was rechecked approximately 6 hours later and found to be 8.1. The patient's symptoms have not worsened in any way and she denies any signs or symptoms of orthostasis. She does feel hungry. Repeat hemoglobin 6 hours after her second hemoglobin demonstrated no significant changes at 7.9. She does continue to complain of discomfort but is certainly not worse than it was at presentation. The patient does also admit to current vaginal bleeding consistent with the beginning of a period which she feels would be due at this time. Obstetrical history: 4 para 1021 with 1 term section and 2 early elective interruptions of . Current statistics are as above. The patient did not intended to be nor does she wish to be . She has been using condoms consistently for contraception. Gynecologic history: Unremarkable with no history of any infections to include STDs. She denies any history of chlamydia or gonorrhea which would potentially represent a risk factor for ectopic . Review of Systems Review of systems is confined to history of present illness. Past Medical History Past Medical History: GERD/Reflux Additional Past Medical History / Comment(s): Pt states just dx with anemia, taking iron History of Any Multi-Drug Resistant Organisms: None Reported Past Surgical History: Section Additional Past Surgical History / Comment(s): Facial reconstruction on upper jaw. Past Anesthesia/Blood Transfusion Reactions: No Reported Reaction Past Psychological History: Anxiety Smoking Status: Current every day smoker Past Alcohol Use History: Occasional Past Drug Use History: Marijuana Additional Drug Use History / Comment(s): Pt smokes 5 cigarettes/day - Past Family History Mother Family Medical History: No Reported History Father Family Medical History: No Reported History Medications and Allergies Home Medications Medication Instructions Recorded Confirmed Type Acetaminophen Tab [Tylenol] 500 mg PO Q6H PRN 01/25/19 01/25/19 History Ibuprofen [Motrin Ib] 800 mg PO Q4H PRN 01/25/19 01/25/19 History Allergies Allergy/AdvReac Type Severity Reaction Status Date / Time Sulfa (Sulfonamide Allergy Intermediate Anaphylaxis Verified 01/25/19 17:08 Antibiotics) Exam Vital Signs Temp Pulse Pulse Resp BP BP Pulse Ox 01/26/19 03:57 98.1 F 89 18 95/56 99 01/26/19 00:24 18 01/26/19 00:22 98.2 F 82 18 109/72 95 01/25/19 23:28 97.8 F 65 18 107/57 99 01/25/19 21:00 88 16 107/54 96 01/25/19 18:31 78 18 98/45 99 01/25/19 17:33 80 18 109/58 98 01/25/19 16:50 89 16 96/59 96 01/25/19 16:20 98/52 01/25/19 16:05 98.4 F 68 18 72/46 98 Intake and Output 01/25/19 01/26/19 01/26/19 22:59 06:59 14:59 Intake Total 480 Balance 480 Intake: Oral 480 Other: Weight 91.172 kg In general, this is a well-developed, mildly obese white female in no acute distress. Her heart has a regular rhythm and rate without murmur. Her lungs are clear to auscultation bilaterally in all reddy. Her abdomen is nondistended, soft, has very mild diffuse tenderness greater in the upper quadrants and lower quadrants. There is no guarding or rebound present there is no evidence of masses, hernias or hepatosplenomegaly. Her extremities are without any cyanosis, clubbing, or edema and are nontender to palpation bilaterally. Bimanual pelvic examination on straights normal external genitalia and BUS with normal vaginal mucosa and cervix to palpation. There is no cervical motion tenderness of any kind. The uterus is approximately 4-5 weeks in size, midplane to slightly retroverted, mobile, nontender, and normal in shape. The organ is very high in the pelvis making the examination somewhat limited. The adnexa are nonpalpable and nontender without any apparent mass bilaterally. The pelvic exam is entirely benign. The only discomfort created was with the abdominal examination hand. Results Result Diagrams: 01/26/19 06:26 01/26/19 06:26 Abnormal Lab Results - Last 24 Hours (Table) 01/25/19 01/25/19 01/25/19 Range/Units 16:31 16:31 16:31 WBC 13.0 H (3.8-10.6) k/uL RBC (3.80-5.40) m/uL Hgb 10.2 L (11.4-16.0) gm/dL Hct 32.5 L (34.0-46.0) % MCV 78.8 L (80.0-100.0) fL MCH 24.7 L (25.0-35.0) pg MCHC (31.0-37.0) g/dL RDW 18.6 H (11.5-15.5) % Neutrophils # 9.2 H (1.3-7.7) k/uL APTT 19.8 L (22.0-30.0) sec Carbon Dioxide 20 L (22-30) mmol/L Glucose 125 H (74-99) mg/dL Calcium (8.4-10.2) mg/dL Total Protein (6.3-8.2) g/dL Albumin (3.5-5.0) g/dL Urine Appearance (Clear) Ur Specific [place] (1.001-1.035) Urine Protein (Negative) Ur Leukocyte Esterase (Negative) Urine RBC (0-5) /hpf Ur Squamous Epith Cells (0-4) /hpf Calcium Oxalate Crystal (None) /hpf Urine Mucus (None) /hpf 01/25/19 01/26/19 01/26/19 Range/Units 17:30 01:27 06:26 WBC (3.8-10.6) k/uL RBC 3.29 L 3.08 L (3.80-5.40) m/uL Hgb 8.1 L D 7.9 L (11.4-16.0) gm/dL Hct 26.5 L 24.7 L (34.0-46.0) % MCV (80.0-100.0) fL MCH 24.5 L (25.0-35.0) pg MCHC 30.4 L (31.0-37.0) g/dL RDW 18.4 H 18.4 H (11.5-15.5) % Neutrophils # (1.3-7.7) k/uL APTT (22.0-30.0) sec Carbon Dioxide (22-30) mmol/L Glucose (74-99) mg/dL Calcium (8.4-10.2) mg/dL Total Protein (6.3-8.2) g/dL Albumin (3.5-5.0) g/dL Urine Appearance Cloudy H (Clear) Ur Specific [place] 1.036 H (1.001-1.035) Urine Protein 1+ H (Negative) Ur Leukocyte Esterase Trace H (Negative) Urine RBC 6 H (0-5) /hpf Ur Squamous Epith Cells 26 H (0-4) /hpf Calcium Oxalate Crystal Many H (None) /hpf Urine Mucus Many H (None) /hpf 01/26/19 Range/Units 06:26 WBC (3.8-10.6) k/uL RBC (3.80-5.40) m/uL Hgb (11.4-16.0) gm/dL Hct (34.0-46.0) % MCV (80.0-100.0) fL MCH (25.0-35.0) pg MCHC (31.0-37.0) g/dL RDW (11.5-15.5) % Neutrophils # (1.3-7.7) k/uL APTT (22.0-30.0) sec Carbon Dioxide (22-30) mmol/L Glucose (74-99) mg/dL Calcium 8.1 L (8.4-10.2) mg/dL Total Protein 5.9 L (6.3-8.2) g/dL Albumin 3.4 L (3.5-5.0) g/dL Urine Appearance (Clear) Ur Specific [place] (1.001-1.035) Urine Protein (Negative) Ur Leukocyte Esterase (Negative) Urine RBC (0-5) /hpf Ur Squamous Epith Cells (0-4) /hpf Calcium Oxalate Crystal (None) /hpf Urine Mucus (None) /hpf Microbiology - Last 24 Hours (Table) 01/25/19 17:30 Urine Culture - Preliminary Urine,Voided Assessment and Plan (1) Abdominal pain Current Visit: Yes Status: Acute Code(s): R10.9 - UNSPECIFIED ABDOMINAL PAIN SNOMED Code(s): 86000547 Plan: The concern from an obstetrical or gynecologic perspective is for ectopic . Laboratory hemoglobin did initially drop, it appears to be entirely stable at this time. All imaging has been benign with no evidence of any pelvic involvement. Her examination shows no significant findings of any kind either. She is having some bleeding vaginally which is more consistent with miscarriage than with ectopic . Beta hCG repeated last night and this morning demonstrates dropping levels indicating a failing though cannot differentiate between an ectopic and a miscarriage. Her physical findings are not consistent with ectopic though the free fluid in the abdomen on CT and ultrasound is a potential concern for intra-abdominal bleeding process that appears to be stable now. At this time she does not have a surgical abdomen. There is a consideration for treatment with methotrexate in single dose therapy as she has a failing in either case. We will await the input of gastroenterology prior to making this decision regarding methotrexate. CBC will be repeated in another 6 hours for stability and likely again tomorrow morning. We will continue to follow with you.
[2019-01-26] MEDS: ONDANSETRON 4 MG/2 ML VIAL IVP PRN ×2 (09:04→17:53)
--- NOTE | 2019-01-26 10:21 | P.HPIM ---
History of Present Illness H&P Date: 01/26/19 This is a 28-year-old female patient of Dr. Khan. Patient presents with complaints of abdominal pain. Patient reports that started approximately 7:30 AM yesterday patient reports that pain came on suddenly and was severe. Patient reports that she went to the bathroom try to have a bowel movement but the pain did not subside. Patient reports that pain did feel like an intense menstrual cramp. Patient reports that she did have episode of emesis which she reports is likely from her pain. Patient denies any other significant nausea. Patient denies diarrhea or vomiting. Patient also reports she had a temp of 100.2. Patient reports she had a take Tylenol and ibuprofen throughout the day which provided minimal improvement. Patient also reports that she had menstrual bleeding which she expected was due with her regular menstrual cycle. Patient denies any increase in bleeding compared to her normal menstrual cycle. Patient has a past medical history of GERD, anemia anxiety and smoker. Initial hCG level 53.5. CT of abdomen completed showing mild to moderate abdominal ascites. Cause for the ascites is not evident. There is suggestion of mild large bowel thickening in the transverse colon that could relate to mild nonspecific colitis. Transvaginal ultrasound completed showing no adnexal mass. No evidence of intrauterine gestational sac free fluid in the pelvis. Chest x- ray completed showing normal chest. No change. EKG completed showing normal sinus rhythm with normal EKG. Initial white blood cell 13.0. Patient also having drop in hemoglobin to 8.1. Consult placed for SEGMENT ASSEMBLER and GI services. Patient is currently resting comfortably in bed. Patient reports some improvement with abdominal pain. Patient does report control pain with Dilaudid pain meds. Patient denies any chest pain or shortness of breath. Patient denies nausea vomiting or diarrhea. Patient is still complaining of mid lower abdominal discomfort that has radiated to upper abdomen. Patient denies any urinary burning or frequency. Review of Systems Please refer to HPI otherwise unremarkable Past Medical History Past Medical History: GERD/Reflux Additional Past Medical History / Comment(s): Pt states just dx with anemia, taking iron History of Any Multi-Drug Resistant Organisms: None Reported Past Surgical History: Section Additional Past Surgical History / Comment(s): Facial reconstruction on upper jaw. Past Anesthesia/Blood Transfusion Reactions: No Reported Reaction Past Psychological History: Anxiety Smoking Status: Current every day smoker Past Alcohol Use History: Occasional Past Drug Use History: Marijuana Additional Drug Use History / Comment(s): Pt smokes 5 cigarettes/day - Past Family History Mother Family Medical History: No Reported History Father Family Medical History: No Reported History Medications and Allergies Home Medications Medication Instructions Recorded Confirmed Type Acetaminophen Tab [Tylenol] 500 mg PO Q6H PRN 01/25/19 01/25/19 History Ibuprofen [Motrin Ib] 800 mg PO Q4H PRN 01/25/19 01/25/19 History Allergies Allergy/AdvReac Type Severity Reaction Status Date / Time Sulfa (Sulfonamide Allergy Intermediate Anaphylaxis Verified 01/25/19 17:08 Antibiotics) Physical Exam Vitals: Vital Signs Temp Pulse Pulse Resp BP BP Pulse Ox 01/26/19 08:00 18 01/26/19 07:30 97.9 F 67 18 119/57 97 01/26/19 03:57 98.1 F 89 18 95/56 99 01/26/19 00:24 18 01/26/19 00:22 98.2 F 82 18 109/72 95 01/25/19 23:28 97.8 F 65 18 107/57 99 01/25/19 21:00 88 16 107/54 96 01/25/19 18:31 78 18 98/45 99 01/25/19 17:33 80 18 109/58 98 01/25/19 16:50 89 16 96/59 96 01/25/19 16:20 98/52 01/25/19 16:05 98.4 F 68 18 72/46 98 Intake and Output 01/25/19 01/26/19 01/26/19 22:59 06:59 14:59 Intake Total 480 60 Balance 480 60 Intake: Oral 480 60 Other: Voiding Method Toilet # Voids 1 Weight 91.172 kg Head normocephalic Neck supple Lungs clear to auscultation bilaterally no wheezing or crackles Heart regular rate and rhythm S1-S2, no rub or gallop Abdomen is soft slightly distended lower abdomen tenderness upon palpation Extremities no edema Neuro alert and orientated to 3 Results CBC & Chem 7: 01/26/19 06:26 01/26/19 06:26 Labs: Abnormal Lab Results - Last 24 Hours (Table) 01/25/19 01/25/19 01/25/19 Range/Units 16:31 16:31 16:31 WBC 13.0 H (3.8-10.6) k/uL RBC (3.80-5.40) m/uL Hgb 10.2 L (11.4-16.0) gm/dL Hct 32.5 L (34.0-46.0) % MCV 78.8 L (80.0-100.0) fL MCH 24.7 L (25.0-35.0) pg MCHC (31.0-37.0) g/dL RDW 18.6 H (11.5-15.5) % Neutrophils # 9.2 H (1.3-7.7) k/uL APTT 19.8 L (22.0-30.0) sec Carbon Dioxide 20 L (22-30) mmol/L Glucose 125 H (74-99) mg/dL Calcium (8.4-10.2) mg/dL Total Protein (6.3-8.2) g/dL Albumin (3.5-5.0) g/dL Urine Appearance (Clear) Ur Specific [place] (1.001-1.035) Urine Protein (Negative) Ur Leukocyte Esterase (Negative) Urine RBC (0-5) /hpf Ur Squamous Epith Cells (0-4) /hpf Calcium Oxalate Crystal (None) /hpf Urine Mucus (None) /hpf 01/25/19 01/26/19 01/26/19 Range/Units 17:30 01:27 06:26 WBC (3.8-10.6) k/uL RBC 3.29 L 3.08 L (3.80-5.40) m/uL Hgb 8.1 L D 7.9 L (11.4-16.0) gm/dL Hct 26.5 L 24.7 L (34.0-46.0) % MCV (80.0-100.0) fL MCH 24.5 L (25.0-35.0) pg MCHC 30.4 L (31.0-37.0) g/dL RDW 18.4 H 18.4 H (11.5-15.5) % Neutrophils # (1.3-7.7) k/uL APTT (22.0-30.0) sec Carbon Dioxide (22-30) mmol/L Glucose (74-99) mg/dL Calcium (8.4-10.2) mg/dL Total Protein (6.3-8.2) g/dL Albumin (3.5-5.0) g/dL Urine Appearance Cloudy H (Clear) Ur Specific [place] 1.036 H (1.001-1.035) Urine Protein 1+ H (Negative) Ur Leukocyte Esterase Trace H (Negative) Urine RBC 6 H (0-5) /hpf Ur Squamous Epith Cells 26 H (0-4) /hpf Calcium Oxalate Crystal Many H (None) /hpf Urine Mucus Many H (None) /hpf 01/26/19 Range/Units 06:26 WBC (3.8-10.6) k/uL RBC (3.80-5.40) m/uL Hgb (11.4-16.0) gm/dL Hct (34.0-46.0) % MCV (80.0-100.0) fL MCH (25.0-35.0) pg MCHC (31.0-37.0) g/dL RDW (11.5-15.5) % Neutrophils # (1.3-7.7) k/uL APTT (22.0-30.0) sec Carbon Dioxide (22-30) mmol/L Glucose (74-99) mg/dL Calcium 8.1 L (8.4-10.2) mg/dL Total Protein 5.9 L (6.3-8.2) g/dL Albumin 3.4 L (3.5-5.0) g/dL Urine Appearance (Clear) Ur Specific [place] (1.001-1.035) Urine Protein (Negative) Ur Leukocyte Esterase (Negative) Urine RBC (0-5) /hpf Ur Squamous Epith Cells (0-4) /hpf Calcium Oxalate Crystal (None) /hpf Urine Mucus (None) /hpf Microbiology - Last 24 Hours (Table) 01/25/19 17:30 Urine Culture - Preliminary Urine,Voided Thrombosis Risk Factor Assmnt - Choose All That Apply Any of the Below Risk Factors Present?: Yes Each Factor Represents 1 point: Obesity (BMI >25) Other Risk Factors: No Other congenital or acquired thrombophilia - If yes, enter type in comment: No Thrombosis Risk Factor Assessment Total Risk Factor Score: 1 Thrombosis Risk Factor Assessment Level: Low Risk Assessment and Plan Assessment: 1. Abdominal pain with fever and leukocytosis. CT of abdomen and pelvis completed showing mild to moderate abdominal ascites. Positive ascites is not evident. There is suggestion of mild large bowel wall thickening in the transverse colon that could relate to mild nonspecific colitis. Transvaginal ultrasound completed showing no admexal mass. No evidence of intrauterine gestational sac. Free fluid in the pelvis. GI services have been consulted SEGMENT ASSEMBLER service is following. 2. Positive HCG. Per SEGMENT ASSEMBLER beta hCG repeated this morning demonstrate dropping levels indicating of failing still cannot differentiate between an ectopic and miscarriage. Awaiting input from GI services prior to making decision regarding methotrexate. 3. Anemia. Repeat CBC has been ordered per SEGMENT ASSEMBLER today at 3. Hemoglobin 7. 9. GI and SEGMENT ASSEMBLER services are following 4. History of GERD 5. History of iron deficiency anemia 6. History of previous 7. History of anxiety 8. History of nicotine dependence. Nicotine patch has been ordered. Patient educated greater than patient DVT prophylaxis SCDs due to anemia. GI prophylaxis Protonix GI and SEGMENT ASSEMBLER service is following urine culture ordered Time with Patient: Greater than 30 (Greater than 60% of the total time spent in counseling and coordination of care. I performed an examination of the patient and discussed their management with the Nurse Practitioner. I have reviewed the Nurse Practitioner's notes and agree with the documented findings and plan of care)
[2019-01-26 11:16] LABS: Amylase 62 U/L (30-110); Lipase 341 U/L (23-300)
--- NOTE | 2019-01-26 13:54 | P.CONS ---
History of Present Illness - Reason for Consult Consult date: 01/26/19 Abdominal pain Requesting physician: Fouzia Alfredo - Chief Complaint Abdominal pain - History of Present Illness 28-year-old female admitted with acute diffuse mid to lower crampy menstrual like abdominal pain vaginal bleeding positive hCG ectopic versus miscarriage. Consult requested for abdominal pain. Patient denies hematemesis hematochezia or melena. No history of chronic diarrhea or constipation. She has a familial history on her father's side one of her grandparents had Crohn's. No history of EGD colonoscopy. She has been seen by BOOKING OFFICER still experiencing vaginal bleeding. CT abdomen and pelvis showed mild to moderate abdominal ascites no evidence of intrauterine gestational sac. Hemoglobin on admission 10.2 presently 7.9. MCV 78-80. Repeat CBC at 1500. White count 13 presently 8.5. Platelet 180. INR 0.9. Lipase 341. Amylase 62. Review of Systems Constitutional: Denies fever, chills, sweats, weight gain, or loss. HEENT: Negative for migraines, blurred vision or loss, earaches, drainage, tinnitus, oral mucosal lesions, dysphagia, or odynophagia. CARDIAC: Negative for chest pain, arrhythmias, or palpitation. RESPIRATORY: Negative for shortness of breath, hemoptysis, cough, or sputum production. GI: See HPI for pertinent findings. : Negative for hematuria, urgency, frequency, polyuria, or dysuria. GYNc: Vaginal bleeding see HPI MUSCULOSKELETAL: Negative for muscle aches, swelling, arthritis, and arthralgias. NEUROLOGIC: Negative for stroke or TIA. ENDOCRINE: Negative for thyroid problems. SKIN: Negative for rash or itching. PSYCHIATRIC: Negative history for depression and anxiety Past Medical History Past Medical History: GERD/Reflux Additional Past Medical History / Comment(s): Pt states just dx with anemia, taking iron History of Any Multi-Drug Resistant Organisms: None Reported Past Surgical History: Section Additional Past Surgical History / Comment(s): Facial reconstruction on upper jaw. Past Anesthesia/Blood Transfusion Reactions: No Reported Reaction Past Psychological History: Anxiety Smoking Status: Current every day smoker Past Alcohol Use History: Occasional Past Drug Use History: Marijuana Additional Drug Use History / Comment(s): Pt smokes 5 cigarettes/day - Past Family History Mother Family Medical History: No Reported History Father Family Medical History: No Reported History Medications and Allergies Home Medications Medication Instructions Recorded Confirmed Type Acetaminophen Tab [Tylenol] 500 mg PO Q6H PRN 01/25/19 01/25/19 History Ibuprofen [Motrin Ib] 800 mg PO Q4H PRN 01/25/19 01/25/19 History Allergies Allergy/AdvReac Type Severity Reaction Status Date / Time Sulfa (Sulfonamide Allergy Intermediate Anaphylaxis Verified 01/25/19 17:08 Antibiotics) Physical Exam Vitals: Vital Signs Temp Pulse Pulse Resp BP BP Pulse Ox 01/26/19 08:00 18 01/26/19 07:30 97.9 F 67 18 119/57 97 01/26/19 03:57 98.1 F 89 18 95/56 99 01/26/19 00:24 18 01/26/19 00:22 98.2 F 82 18 109/72 95 01/25/19 23:28 97.8 F 65 18 107/57 99 01/25/19 21:00 88 16 107/54 96 01/25/19 18:31 78 18 98/45 99 01/25/19 17:33 80 18 109/58 98 01/25/19 16:50 89 16 96/59 96 01/25/19 16:20 98/52 01/25/19 16:05 98.4 F 68 18 72/46 98 Intake and Output 01/25/19 01/26/19 01/26/19 22:59 06:59 14:59 Intake Total 480 60 Balance 480 60 Intake: Oral 480 60 Other: Voiding Method Toilet # Voids 1 Weight 91.172 kg General appearance: The patient is alert, oriented, in no acute distress. HET: Head is normocephalic and atraumatic. Pupils are equal and reactive. Oropharynx is clear without lesions. Neck: Supple without lymphadenopathy. Trachea midline. Heart: S1 S2. Regular rate and rhythm. Lungs: No crackles or wheezes are heard. Abdomen: Soft, mild tenderness to bilateral lower abdomen as well as a long midline, nondistended with bowel sounds. No peritoneal signs. No palpable organomegaly or masses. Extremities: Normal skin color and turgor. No cyanosis, rash, ulceration, clubbing, or edema. Radial and pedal pulses are 2/4 bilaterally. Neurological: No focal deficits. Strength and sensation are grossly intact. Results CBC & Chem 7: 01/26/19 06:26 01/26/19 06:26 Labs: Abnormal Lab Results - Last 24 Hours (Table) 01/25/19 01/25/19 01/25/19 Range/Units 16:31 16:31 16:31 WBC 13.0 H (3.8-10.6) k/uL RBC (3.80-5.40) m/uL Hgb 10.2 L (11.4-16.0) gm/dL Hct 32.5 L (34.0-46.0) % MCV 78.8 L (80.0-100.0) fL MCH 24.7 L (25.0-35.0) pg MCHC (31.0-37.0) g/dL RDW 18.6 H (11.5-15.5) % Neutrophils # 9.2 H (1.3-7.7) k/uL APTT 19.8 L (22.0-30.0) sec Carbon Dioxide 20 L (22-30) mmol/L Glucose 125 H (74-99) mg/dL Calcium (8.4-10.2) mg/dL Total Protein (6.3-8.2) g/dL Albumin (3.5-5.0) g/dL Lipase (23-300) U/L Urine Appearance (Clear) Ur Specific [place] (1.001-1.035) Urine Protein (Negative) Ur Leukocyte Esterase (Negative) Urine RBC (0-5) /hpf Ur Squamous Epith Cells (0-4) /hpf Calcium Oxalate Crystal (None) /hpf Urine Mucus (None) /hpf 01/25/19 01/26/19 01/26/19 Range/Units 17:30 01:27 06:26 WBC (3.8-10.6) k/uL RBC 3.29 L 3.08 L (3.80-5.40) m/uL Hgb 8.1 L D 7.9 L (11.4-16.0) gm/dL Hct 26.5 L 24.7 L (34.0-46.0) % MCV (80.0-100.0) fL MCH 24.5 L (25.0-35.0) pg MCHC 30.4 L (31.0-37.0) g/dL RDW 18.4 H 18.4 H (11.5-15.5) % Neutrophils # (1.3-7.7) k/uL APTT (22.0-30.0) sec Carbon Dioxide (22-30) mmol/L Glucose (74-99) mg/dL Calcium (8.4-10.2) mg/dL Total Protein (6.3-8.2) g/dL Albumin (3.5-5.0) g/dL Lipase (23-300) U/L Urine Appearance Cloudy H (Clear) Ur Specific [place] 1.036 H (1.001-1.035) Urine Protein 1+ H (Negative) Ur Leukocyte Esterase Trace H (Negative) Urine RBC 6 H (0-5) /hpf Ur Squamous Epith Cells 26 H (0-4) /hpf Calcium Oxalate Crystal Many H (None) /hpf Urine Mucus Many H (None) /hpf 01/26/19 01/26/19 Range/Units 06:26 06:58 WBC (3.8-10.6) k/uL RBC (3.80-5.40) m/uL Hgb (11.4-16.0) gm/dL Hct (34.0-46.0) % MCV (80.0-100.0) fL MCH (25.0-35.0) pg MCHC (31.0-37.0) g/dL RDW (11.5-15.5) % Neutrophils # (1.3-7.7) k/uL APTT (22.0-30.0) sec Carbon Dioxide (22-30) mmol/L Glucose (74-99) mg/dL Calcium 8.1 L (8.4-10.2) mg/dL Total Protein 5.9 L (6.3-8.2) g/dL Albumin 3.4 L (3.5-5.0) g/dL Lipase 341 H (23-300) U/L Urine Appearance (Clear) Ur Specific [place] (1.001-1.035) Urine Protein (Negative) Ur Leukocyte Esterase (Negative) Urine RBC (0-5) /hpf Ur Squamous Epith Cells (0-4) /hpf Calcium Oxalate Crystal (None) /hpf Urine Mucus (None) /hpf Microbiology - Last 24 Hours (Table) 01/25/19 17:30 Urine Culture - Preliminary Urine,Voided CT scan - abdomen: report reviewed (Dr. Torre) Assessment and Plan (1) Abdominal pain Narrative/Plan: 28-year-old female admitted with acute abdominal pain vaginal bleeding anemia positive hCG ectopic versus miscarriage presently being followed closely by BOOKING OFFICER. 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 Continue with present medical therapy. Concern for intra-abdominal bleeding with a drop in hemoglobin component of acute blood loss anemia. Current Visit: Yes Status: Acute Code(s): R10.9 - UNSPECIFIED ABDOMINAL PAIN SNOMED Code(s): 89162678 Plan: 1. CBC at 1500. Nothing by mouth. BOOKING OFFICER following. Thank you for this kind referral and the opportunity to participate in the care of your patient. This consultation was discussed with Dr. Torre. The impression and plan of care have been directed as dictated.
[2019-01-26 15:23] LABS: Anisocytosis Slight; Basophils % (A) 0 %; Eosinophils # (A) 0.1 k/uL (0-0.7); Eosinophils % (A) 2 %; HCT 24.8 % (34.0-46.0); HGB 7.6 gm/dL (11.4-16.0); Lymphocytes # (A) 2.7 k/uL (1.0-4.8); Lymphocytes % (A) 31 %; MCH 24.8 pg (25.0-35.0); MCHC 30.6 g/dL (31.0-37.0); MCV 81.3 fL (80.0-100.0); Microcytosis Slight; Monocytes # (A) 0.4 k/uL (0-1.0); Monocytes % (A) 4 %; Neutrophils # (A) 5.3 k/uL (1.3-7.7); Neutrophils % (A) 61 %; Platelet Count 174 k/uL (150-450); RBC 3.05 m/uL (3.80-5.40); RDW 18.6 % (11.5-15.5); WBC 8.6 k/uL (3.8-10.6)
[2019-01-26] MEDS ORDERED: METHOTREXATE SODIUM (PF) 25 MG/ML 2 ML VIAL IM ONE (17:30)
[2019-01-27] MEDS: SODIUM CHLORIDE 0.9% 1,000 ML IV SCH ×2 (00:57→08:31)
[2019-01-27] MEDS: HYDROmorphone 1 MG/ML 1 ML SYRINGE IVP PRN ×3 (00:57→08:31)
[2019-01-27 06:20] LABS: Anisocytosis Slight; Basophils % (A) 0 %; Eosinophils # (A) 0.1 k/uL (0-0.7); Eosinophils % (A) 1 %; HCT 23.4 % (34.0-46.0); HGB 7.2 gm/dL (11.4-16.0); Lymphocytes % (A) 26 %; MCH 24.9 pg (25.0-35.0); MCHC 30.7 g/dL (31.0-37.0); MCV 81.1 fL (80.0-100.0); Mean Platelet Volume 9.2; Microcytosis Slight; Monocytes # (A) 0.3 k/uL (0-1.0); Monocytes % (A) 4 %; Neutrophils # (A) 5.2 k/uL (1.3-7.7); Neutrophils % (A) 67 %; Platelet Count 163 k/uL (150-450); RBC 2.88 m/uL (3.80-5.40); RDW 18.7 % (11.5-15.5); WBC 7.7 k/uL (3.8-10.6)
[2019-01-27 06:41] LABS: ALT 29 U/L (9-52); AST 12 U/L (14-36); African American GFR (CKD) >90 (>60 ml/min/1.73 sqM); Albumin 3.2 g/dL (3.5-5.0); Alkaline Phosphatase 51 U/L (38-126); Anion Gap 6 mmol/L; Blood Urea Nitrogen 6 mg/dL (7-17); Calcium 7.9 mg/dL (8.4-10.2); Carbon Dioxide 24 mmol/L (22-30); Chloride 108 mmol/L (98-107); Glucose 84 mg/dL (74-99); Sodium 138 mmol/L (137-145); Total Bilirubin 0.7 mg/dL (0.2-1.3); Total Protein 5.6 g/dL (6.3-8.2)
[2019-01-27 06:56] LABS: HCG,Quantitative Serum 41.5 mIU/mL
[2019-01-27] MEDS: ONDANSETRON 4 MG/2 ML VIAL IVP PRN ×2 (08:31→20:45)
[2019-01-27] MEDS: PANTOPRAZOLE 40 MG/10 ML VIAL IV SCH (08:31)
[2019-01-27] MEDS ORDERED: NICOTINE 14MG/24HR PATCH TRANSDERM SCH (09:00)
--- NOTE | 2019-01-27 09:50 | US ---
EXAMINATION TYPE: US pelvis complete transvag DATE OF EXAM: 01/27/2019 COMPARISON: Previous study dated 01/25/2019. CLINICAL HISTORY: worsening hemoglobin. Pain, Hx of free fluid in pelvis, hx of TECHNIQUE: Transvaginal (TV) and Transabdominal (TA) . Transabdominal sonographic images of the pel vis were acquired. Transvaginal sonographic images were medically necessary to better assess the fol lowing anatomy: Ovaries Date of LMP: 12/25/2018, EXAM MEASUREMENTS: Uterus: 10.3 x 5.3 x 3.5cm Endometrial Stripe: 0.5 cm Right Ovary: 3.0 x 2.0 x 2.4 cm Left Ovary: 3.0 x 2.2 x 2.3 cm 1. Uterus: Anteverted At area of , possible fluid seen- 1.2 x 0.8 cm 2. Endometrium: wnl 3. Right Ovary: follicles 4. Left Ovary: follicles. Limited visualization transvaginally due to location. 5. Bilateral Adnexa: free fluid 6. Posterior cul-de-sac: free fluid Cervix- nabothian cysts. Fluid seen within endometrial canal. Free fluid seen throughout pelvis IMPRESSION: THERE HAS BEEN INTERVAL DEVELOPMENT OF A MODERATE AMOUNT OF COMPLEX FREE FLUID WITHIN THE CUL-DE-SAC AND ALSO ADJACENT TO BOTH ADNEXA. NO DEFINITE ECTOPIC IS SEEN. WE HAVE NOT IDENTIFIED EITHE R AN INTRAUTERINE OR EXTRAUTERINE .
--- NOTE | 2019-01-27 10:48 | P.PN ---
Subjective Progress Note Date: 01/27/19 Principal diagnosis: Positive test suspicious for ectopic , hemoperitoneum is suspected This is a pleasant 28-year-old 001 that presented to the emergency department approximately 2 days ago with complaints of spotting and pelvic pain. Patient was noted to have fluid throughout her abdomen hemoglobin on initial admission 10.16 hours later went down to 8.1 is consistently trended down to 7.2. Patient's vital signs have remained essentially stable although her pulse is noted to be elevated. Patient states she feels de la garza in the pelvis and is noting some firmness. Patient is also becoming febrile with a slight temp of 99. Patient denies chest pain, nausea or vomiting this morning. Patient states this was not a planned nor does she desire any further pregnancies. is in agreement at the bedside that they do not want furt her children. Objective - Vital Signs Vital signs: Vital Signs Temp 99.2 F 01/27/19 09:45 Pulse 95 01/27/19 09:45 Resp 16 01/27/19 09:45 BP 108/70 01/27/19 09:45 Pulse Ox 92 L 01/27/19 09:45 Intake & Output 01/26/19 01/27/19 01/27/19 18:59 06:59 18:59 Intake Total 560 1600 Balance 560 1600 Intake: Oral 560 1600 Other: Voiding Method Toilet # Voids 2 2 - Constitutional General appearance: Present: average body habitus, cooperative, no acute distress - EENT Eyes: Present: EOMI - Respiratory Respiratory: bilateral: CTA - Cardiovascular Rhythm: regular - Gastrointestinal General gastrointestinal: Present: decreased bowel sounds, distended, soft - Psychiatric Psychiatric: Present: A&O x's 3, appropriate affect, intact judgment & insight - Labs CBC & Chem 7: 01/27/19 05:39 01/27/19 05:39 Labs: Abnormal Lab Results - Last 24 Hours (Table) 01/26/19 01/26/19 01/27/19 Range/Units 06:58 15:06 05:39 RBC 3.05 L 2.88 L (3.80-5.40) m/uL Hgb 7.6 L 7.2 L (11.4-16.0) gm/dL Hct 24.8 L 23.4 L (34.0-46.0) % MCH 24.8 L 24.9 L (25.0-35.0) pg MCHC 30.6 L 30.7 L (31.0-37.0) g/dL RDW 18.6 H 18.7 H (11.5-15.5) % Chloride (98-107) mmol/L BUN (7-17) mg/dL Calcium (8.4-10.2) mg/dL AST (14-36) U/L Total Protein (6.3-8.2) g/dL Albumin (3.5-5.0) g/dL Lipase 341 H (23-300) U/L 01/27/19 Range/Units 05:39 RBC (3.80-5.40) m/uL Hgb (11.4-16.0) gm/dL Hct (34.0-46.0) % MCH (25.0-35.0) pg MCHC (31.0-37.0) g/dL RDW (11.5-15.5) % Chloride 108 H (98-107) mmol/L BUN 6 L (7-17) mg/dL Calcium 7.9 L (8.4-10.2) mg/dL AST 12 L (14-36) U/L Total Protein 5.6 L (6.3-8.2) g/dL Albumin 3.2 L (3.5-5.0) g/dL Lipase (23-300) U/L Microbiology - Last 24 Hours (Table) 01/25/19 17:30 Urine Culture - Final Urine,Voided 01/25/19 16:31 Blood Culture - Preliminary Blood No Growth after 24 hours Assessment and Plan (1) Ectopic Current Visit: Yes Status: Acute Code(s): O00.90 - UNSPECIFIED ECTOPIC WITHOUT INTRAUTERINE SNOMED Code(s): 34457296 (2) Acute blood loss anemia Current Visit: Yes Status: Acute Code(s): D62 - ACUTE POSTHEMORRHAGIC ANEMIA SNOMED Code(s): 029455795 Plan: Patient is seen at the bedside and given her continued drop in hemoglobin, increasing pulse and decreasing O2 sat recommendation is made for operative laparoscopy to evaluate the pelvis. Suspicious for ectopic although low beta hCG is noted. Patient is counseled on the risks of possible salpingectomy, possible salpingo-oophorectomy. Risks of surgery are reviewed patient in detail including but not limited to infection, bleeding, damage to bladder, bowel, ureteric or other pelvic structures. Patient is counseled on the decreased fertility given possible loss of ovary/fallopian tube patient states understanding both her and her are in agreement that they are done with childbearing and do not wish future pregnancies. All questions are answered and patient and are in agreement with the plan patient will be taken to the operating suite momentarily.
[2019-01-27] MEDS ORDERED: SUCCINYLCHOLINE CHLORIDE 100 MG/5 ML SYR IV ONE (11:22)
[2019-01-27] MEDS ORDERED: MIDAZOLAM 2 MG/2 ML VIAL ONE (11:22)
[2019-01-27] MEDS ORDERED: IV FLUID CONTINUATION 900 ML IV ONE (11:22)
[2019-01-27] MEDS ORDERED: fentaNYL (PF) 50 MCG/ML 2 ML AMP ONE (11:22)
[2019-01-27] MEDS ORDERED: PROPOFOL 10 MG/ML 20 ML VIAL IV ONE (11:22)
[2019-01-27] MEDS ORDERED: METOCLOPRAMIDE 5 MG/ML 2 ML VIAL IVP PRN (11:40)
[2019-01-27] MEDS ORDERED: HYDROmorphone 0.5 MG/0.5 ML SYRINGE IVP PRN (11:40)
[2019-01-27] MEDS ORDERED: ONDANSETRON 4 MG/2 ML VIAL IVP PRN (11:40)
[2019-01-27] MEDS ORDERED: BUPIVACAINE (PF) 0.25% 30 ML VIAL SQ ONE ×2 (11:59)
[2019-01-27 12:00] LABS: Anisocytosis Slight; HCT 22.7 % (34.0-46.0); HGB 7.2 gm/dL (11.4-16.0); MCH 25.1 pg (25.0-35.0); MCHC 31.5 g/dL (31.0-37.0); MCV 79.6 fL (80.0-100.0); Mean Platelet Volume 8.2; Microcytosis Slight; Platelet Count 161 k/uL (150-450); RBC 2.86 m/uL (3.80-5.40); RDW 18.7 % (11.5-15.5); WBC 7.6 k/uL (3.8-10.6)
[2019-01-27] MEDS ORDERED: LACTATED RINGERS 1,000 ML IV ONE (12:00)
[2019-01-27] MEDS ORDERED: KETOROLAC 30 MG/ML 1 ML VIAL IVP PRN (12:00)
[2019-01-27] MEDS ORDERED: SODIUM FERRIC GLUCONAT-SUCROSE 125 MG in SODIUM CHLORIDE 0.9% 100 ML IVPB ONE (12:00)
[2019-01-27] MEDS ORDERED: Acetaminophen-Codeine 300-30mg TAB PO PRN (12:39)
[2019-01-27] MEDS ORDERED: ACETAMINOPHEN IV (For NPO) 1,000 MG in EMPTY BAG 1 BAG IVPB ONE (12:39)
--- NOTE | 2019-01-27 12:39 | P.OP ---
Date of Procedure: 01/27/19 Preoperative Diagnosis: Positive test, complex fluid noted within the pelvis and bilateral adnexa. Postoperative Diagnosis: Same plus left ectopic Procedure(s) Performed: Operative laparoscopy with left salpingectomy, evacuation of hemoperitoneum Anesthesia: TYLER Surgeon: Raquel Clark Photograph Inspector #1: Leodan Linares Estimated Blood Loss (ml): 10 Urine output (ml): 200 Pathology: none sent (Left fallopian tube) Condition: stable Disposition: PACU Indications for Procedure: Drop in hemoglobin consistent with acute blood loss anemia with positive test suspicious for ectopic, despite low hormone levels. Patient had noted tachycardia and increased symptomatology of abdominal fullness and pressure. Operative Findings: Upon entering the abdomen and the pelvis is noted to be filled with blood, 300 mL of blood was suctioned from the pelvis, right fallopian tube and ovary were noted to be normal, left fallopian tube was noted to be distended at the distal end with presumptive ectopic normal ovary was appreciated the rest of the abdomen was normal there was blood noted in the pericolic gutters. Description of Procedure: Patient was seen in the preoperative area and informed consent was obtained. Patient was counseled on the fact that given her testing she most likely has an ectopic but we were unsure of what we would find when he entered the abdomen. Patient understood there was a possibility of losing her fallopian tube i.e. salpingectomy or oophorectomy. Patient was understanding and wished to proceed. This were reviewed including but not limited to infection, bleeding, damage to bladder, bowel, ureteric or other pelvic structures. Patient stated understanding of these as well. Patient was taken to the o perating suite where general anesthesia was obtained without difficulty by the anesthesia department. She was then prepped and draped in normal sterile fashion in the dorsal lithotomy position Flushing catheter was used to drain the bladder of 200 mL of clear yellow urine. Speculum was placed and an acorn uterine manipulator was used to manipulative uterus throughout the procedure. Attention was then turned the patient's abdomen, where in the umbilical fold a small skin incision is made. Through this incision the Veress needles placed. Once the Veress needle was deemed to be in the proper position with a drop of CO2 pressure with insufflation of CO2 gas CO2 insufflation was allowed to occur. Approximately 3 L of gas were used to obtain pneumoperitoneum. At this time and additional port sites was placed 2 finger breaths from the ASIS on the right side. The suction device was then used to copiously irrigated and suction the blood from the patient's pelvis. 300 mL of blood was suctioned from the pelvis. The right fallopian tube was elevated and normal in nature. The left fallopian tube was elevated and adherent to the left pelvic sidewall with the fimbriated end consistent with ectopic . An additional ports that was placed in the left lower quadrant 2 finger breaths from the ASIS this is a 5 lip port placed under direct visualization. The left fallopian tube was elevated and the LigaSure device was placed through the right lower incision and the fallopian tube was then excised sharply with good hemostasis being appreciated. The tube was then placed and I Endo Catch bag and delivered through the laparoscopic incision. The pelvis was then copiously irrigated and bleeding was noted. At this time all instrument were removed from the patient's abdomen and the skin incisions were closed with 4-0 Vicryl in a subcuticular fashion. Attention was then turned to the patient's vaginal vault the single-tooth tenaculum and acorn uterine manipulator that had been placed to manipulate the uterus throughout the procedure was removed hemostasis was appreciated on the patient's cervix. The bladder was drained once again and clear yellow urine was noted for approximately 100 mL. All counts were correct 2 patient tolerated procedure well and was taken the recovery room awake in stable condition.
[2019-01-27] MEDS ORDERED: IBUPROFEN IV 800 MG in SODIUM CHLORIDE 0.9% 250 ML IV ONE (12:42)
[2019-01-27] MEDS: LACTATED RINGERS 1,000 ML IV SCH ×2 (13:28→20:14)
[2019-01-27] MEDS: Acetaminophen-Codeine 300-30mg TAB PO PRN ×2 (16:12→22:29)
[2019-01-27 18:22] LABS: Anisocytosis Slight; HGB 7.4 gm/dL (11.4-16.0); MCH 25.6 pg (25.0-35.0); MCHC 32.3 g/dL (31.0-37.0); MCV 79.1 fL (80.0-100.0); Mean Platelet Volume 8.3; Microcytosis Slight; Platelet Count 153 k/uL (150-450); RBC 2.91 m/uL (3.80-5.40); RDW 18.4 % (11.5-15.5); WBC 9.1 k/uL (3.8-10.6)
[2019-01-27] MEDS: HYDROmorphone 0.5 MG/0.5 ML SYRINGE IVP PRN ×2 (20:04→23:27)
[2019-01-27] MEDS: IBUPROFEN 600 MG TAB PO PRN (20:12)
[2019-01-27 20:14] VITALS: RESP 18
--- NOTE | 2019-01-27 21:05 | P.PN ---
Subjective Progress Note Date: 01/27/19 Principal diagnosis: Left ectopic , hemoperitoneum status post operative laparoscopy with left salpingectomy, evacuation of hemoperitoneum Patient states she is feeling improved since surgery. She does have some bloating, postop pain. She was given Tylenol No. 3 to which she fell asleep and was comfortable. She has voided spontaneously / surgery she is feeling h ungry and eating a regular diet. She notes minimal vaginal bleeding. Objective - Vital Signs Vital signs: Vital Signs Temp 98.2 F 01/27/19 19:55 Pulse 60 01/27/19 20:20 Resp 18 01/27/19 20:20 BP 110/75 01/27/19 19:55 Pulse Ox 95 01/27/19 19:55 Intake & Output 01/27/19 01/27/19 01/28/19 06:59 18:59 06:59 Intake Total 1600 1300 Output Total 305 Balance 1600 995 Intake: IV 1300 Oral 1600 Output: Urine 300 Estimated Blood Loss 5 Other: Voiding Method Toilet # Voids 2 1 - Constitutional General appearance: Present: average body habitus, cooperative, no acute distress - Gastrointestinal General gastrointestinal: Present: soft (Incisions noted to be clean dry and intact) - Psychiatric Psychiatric: Present: A&O x's 3, appropriate affect - Labs CBC & Chem 7: 01/27/19 17:45 01/27/19 05:39 Labs: Abnormal Lab Results - Last 24 Hours (Table) 01/27/19 01/27/19 01/27/19 Range/Units 05:39 05:39 11:20 RBC 2.88 L 2.86 L (3.80-5.40) m/uL Hgb 7.2 L 7.2 L (11.4-16.0) gm/dL Hct 23.4 L 22.7 L (34.0-46.0) % MCV 79.6 L (80.0-100.0) fL MCH 24.9 L (25.0-35.0) pg MCHC 30.7 L (31.0-37.0) g/dL RDW 18.7 H 18.7 H (11.5-15.5) % Chloride 108 H (98-107) mmol/L BUN 6 L (7-17) mg/dL Calcium 7.9 L (8.4-10.2) mg/dL AST 12 L (14-36) U/L Total Protein 5.6 L (6.3-8.2) g/dL Albumin 3.2 L (3.5-5.0) g/dL 01/27/19 Range/Units 17:45 RBC 2.91 L (3.80-5.40) m/uL Hgb 7.4 L (11.4-16.0) gm/dL Hct 23.0 L (34.0-46.0) % MCV 79.1 L (80.0-100.0) fL MCH (25.0-35.0) pg MCHC (31.0-37.0) g/dL RDW 18.4 H (11.5-15.5) % Chloride (98-107) mmol/L BUN (7-17) mg/dL Calcium (8.4-10.2) mg/dL AST (14-36) U/L Total Protein (6.3-8.2) g/dL Albumin (3.5-5.0) g/dL Microbiology - Last 24 Hours (Table) 01/25/19 16:31 Blood Culture - Preliminary Blood No Growth after 48 hours 01/25/19 17:30 Urine Culture - Final Urine,Voided Assessment and Plan (1) Ectopic Current Visit: Yes Status: Acute Code(s): O00.90 - UNSPECIFIED ECTOPIC WITHOUT INTRAUTERINE SNOMED Code(s): 70149964 (2) Acute blood loss anemia Current Visit: Yes Status: Acute Code(s): D62 - ACUTE POSTHEMORRHAGIC ANEMIA SNOMED Code(s): 781246261 Plan: Surgery is discussed with patient and her in detail pictures were reviewed. Recent labs at 1800 were reviewed hemoglobin was noted to be increasing. Patient's oxygen saturation and vitals are now stable. Anticipate discharge in the morning per ASSET MANAGEMENT LEAD perspective discharge instructions for myself are reviewed including a 2 week postop check. We will plan Tylenol No. 3/Motrin as needed for pain control. All questions are answered and patient has a concern prior to the 2 weeks she is urged to make an appointment sooner.
[2019-01-28] MEDS: IBUPROFEN 600 MG TAB PO PRN ×2 (02:35→07:24)
[2019-01-28] MEDS: HYDROmorphone 0.5 MG/0.5 ML SYRINGE IVP PRN ×2 (02:35→06:27)
[2019-01-28] MEDS: Acetaminophen-Codeine 300-30mg TAB PO PRN ×2 (04:29→09:57)
[2019-01-28] MEDS: SODIUM CHLORIDE 0.9% 1,000 ML IV SCH ×2 (07:19→07:20)
[2019-01-28 07:23] LABS: Anisocytosis Slight; Basophils % (A) 0 %; Eosinophils # (A) 0.2 k/uL (0-0.7); Eosinophils % (A) 3 %; HCT 23.5 % (34.0-46.0); HGB 7.4 gm/dL (11.4-16.0); Lymphocytes # (A) 1.2 k/uL (1.0-4.8); Lymphocytes % (A) 22 %; MCH 25.3 pg (25.0-35.0); MCHC 31.5 g/dL (31.0-37.0); MCV 80.2 fL (80.0-100.0); Mean Platelet Volume 8.5; Microcytosis Slight; Monocytes # (A) 0.1 k/uL (0-1.0); Monocytes % (A) 2 %; Neutrophils # (A) 4.2 k/uL (1.3-7.7); Neutrophils % (A) 72 %; Platelet Count 155 k/uL (150-450); RBC 2.93 m/uL (3.80-5.40); RDW 18.5 % (11.5-15.5); WBC 5.8 k/uL (3.8-10.6)
[2019-01-28] MEDS: PANTOPRAZOLE 40 MG/10 ML VIAL IV SCH (07:24)
[2019-01-28] MEDS: ONDANSETRON 4 MG/2 ML VIAL IVP PRN (07:25)
[2019-01-28 07:37] LABS: ALT 52 U/L (9-52); AST 37 U/L (14-36); African American GFR (CKD) >90 (>60 ml/min/1.73 sqM); Albumin 3.4 g/dL (3.5-5.0); Alkaline Phosphatase 53 U/L (38-126); Anion Gap 7 mmol/L; Blood Urea Nitrogen 7 mg/dL (7-17); Calcium 8.2 mg/dL (8.4-10.2); Carbon Dioxide 27 mmol/L (22-30); Chloride 107 mmol/L (98-107); Glucose 100 mg/dL (74-99); Potassium 3.6 mmol/L (3.5-5.1); Sodium 141 mmol/L (137-145); Total Bilirubin 0.8 mg/dL (0.2-1.3); Total Protein 5.9 g/dL (6.3-8.2)
--- NOTE | 2019-01-28 10:23 | P.PN ---
Subjective Progress Note Date: 01/27/19 This is a 28-year-old female patient of Dr. Khan. Patient presents with complaints of abdominal pain. Patient reports that started approximately 7:30 AM yesterday patient reports that pain came on suddenly and was severe. Patient reports that she went to the bathroom try to have a bowel movement but the pain did not subside. Patient reports that pain did feel like an intense menstrual cramp. Patient reports that she did have episode of emesis which she reports is likely from her pain. Patient denies any other significant nausea. Patient denies diarrhea or vomiting. Patient also reports she had a temp of 100.2. Patient reports she had a take Tylenol and ibuprofen throughout the day which provided minimal improvement. Patient also reports that she had menstrual bleeding which she expected was due with her regular menstrual cycle. Patient denies any increase in bleeding compared to her normal menstrual cycle. Patient has a past medical history of GERD, anemia anxiety and smoker. Initial hCG level 53.5. CT of abdomen completed showing mild to moderate abdominal ascites. Cause for the ascites is not evident. There is suggestion of mild large bowel thickening in the transverse colon that could relate to mild nonspecific colitis. Transvaginal ultrasound completed showing no adnexal mass. No evidence of intrauterine gestational sac free fluid in the pelvis. Chest x- ray completed showing normal chest. No change. EKG completed showing normal sinus rhythm with normal EKG. Initial white blood cell 13.0. Patient also having drop in hemoglobin to 8.1. Consult placed for USER EXPERIENCE ANALYST and GI services. Patient is currently resting comfortably in bed. Patient reports some improvement with abdominal pain. Patient does report control pain with Dilaudid pain meds. Patient denies any chest pain or shortness of breath. Patient denies nausea vomiting or diarrhea. Patient is still complaining of mid lower abdominal discomfort that has radiated to upper abdomen. Patient denies any urinary burning or frequency. On 01/27/2019 patient was seen and examined on the medical floor, she is feeling better since surgery she underwent operative laparoscopy with left salpingectomy, evacuation of hemoperitoneum for Left ectopic , hemoperitoneum. At this time patient is still complaining of mild abdominal pain otherwise no complaints is no fever or chills no headache or dizziness no chest pain no shortness of breath no cough no nausea or vomiting and no urinary symptoms Objective - Vital Signs Vital signs: Vital Signs Temp 97.9 F 01/27/19 23:15 Pulse 86 01/27/19 23:15 Resp 18 01/28/19 09:45 BP 110/57 01/27/19 23:15 Pulse Ox 97 01/27/19 23:15 Intake & Output 01/27/19 01/28/19 01/28/19 18:59 06:59 18:59 Intake Total 1300 Output Total 305 Balance 995 Intake: IV 1300 Output: Urine 300 Estimated Blood Loss 5 Other: Voiding Method Toilet # Voids 1 - Exam In general patient is alert and oriented 3 in no apparent distress Head normocephalic and atraumatic Neck supple no JVD no goiter Lungs clear to auscultation bilaterally no wheezing or crackles Heart regular rate and rhythm S1-S2, no rub or gallop Abdomen is soft slightly distended lower abdomen tenderness upon palpation Extremities no edema no cyanosis or clubbing Neuro no gross focal neurological deficit - Labs CBC & Chem 7: 01/28/19 06:45 01/28/19 06:45 Labs: Abnormal Lab Results - Last 24 Hours (Table) 01/27/19 01/27/19 01/28/19 Range/Units 11:20 17:45 06:45 RBC 2.86 L 2.91 L 2.93 L (3.80-5.40) m/uL Hgb 7.2 L 7.4 L 7.4 L (11.4-16.0) gm/dL Hct 22.7 L 23.0 L 23.5 L (34.0-46.0) % MCV 79.6 L 79.1 L (80.0-100.0) fL RDW 18.7 H 18.4 H 18.5 H (11.5-15.5) % Glucose (74-99) mg/dL Calcium (8.4-10.2) mg/dL AST (14-36) U/L Total Protein (6.3-8.2) g/dL Albumin (3.5-5.0) g/dL 01/28/19 Range/Units 06:45 RBC (3.80-5.40) m/uL Hgb (11.4-16.0) gm/dL Hct (34.0-46.0) % MCV (80.0-100.0) fL RDW (11.5-15.5) % Glucose 100 H (74-99) mg/dL Calcium 8.2 L (8.4-10.2) mg/dL AST 37 H (14-36) U/L Total Protein 5.9 L (6.3-8.2) g/dL Albumin 3.4 L (3.5-5.0) g/dL Microbiology - Last 24 Hours (Table) 01/25/19 16:31 Blood Culture - Preliminary Blood No Growth after 48 hours Assessment and Plan Plan: 1. Abdominal pain with fever and leukocytosis. CT of abdomen and pelvis completed showing mild to moderate abdominal ascites. Positive ascites is not evident. There is suggestion of mild large bowel wall thickening in the transverse colon that could relate to mild nonspecific colitis. Transvaginal ultrasound completed showing no admexal mass. No evidence of intrauterine gestational sac. Free fluid in the pelvis. GI services have been consulted USER EXPERIENCE ANALYST service is following. Left ectopic , hemoperitoneum status post operative laparoscopy with left salpingectomy, evacuation of hemoperitoneum 2. Positive HCG. Per USER EXPERIENCE ANALYST beta hCG repeated this morning demonstrate dropping levels indicating of failing still cannot differentiate between an ectopic and miscarriage. Awaiting input from GI services prior to making decision regarding methotrexate. 3. Anemia. Repeat CBC has been ordered per USER EXPERIENCE ANALYST today at 3. Hemoglobin 7. 9. GI and USER EXPERIENCE ANALYST services are following 4. History of GERD 5. History of iron deficiency anemia 6. History of previous 7. History of anxiety 8. History of nicotine dependence. Nicotine patch has been ordered. Patient educated greater than patient
[2019-01-28 10:29] VITALS: BP 116/70; PULSE 78; TEMP 98.5
--- NOTE | 2019-01-28 11:13 | P.PN ---
Subjective Progress Note Date: 01/28/19 Principal diagnosis: Left ectopic , hemoperitoneum status post operative laparoscopy with left salpingectomy, evacuation of hemoperitoneum Patient has done well overnight. She is ambulating and voiding without difficulty. She states her pain is controlled with Tylenol No. 3/ibuprofen. She does wish discharge home today. Labs are reviewed with her this morning. Hemoglobin is noted to be stable. She is noting gas discomfort but minimal ambulation since surgery. Objective - Vital Signs Vital signs: Vital Signs Temp 98.5 F 01/28/19 08:27 Pulse 78 01/28/19 08:27 Resp 18 01/28/19 09:45 BP 116/70 01/28/19 08:27 Pulse Ox 96 01/28/19 08:27 Intake & Output 01/27/19 01/28/19 01/28/19 18:59 06:59 18:59 Intake Total 1300 Output Total 305 Balance 995 Intake: IV 1300 Output: Urine 300 Estimated Blood Loss 5 Other: Voiding Method Toilet # Voids 1 - Constitutional General appearance: Present: average body habitus, cooperative, no acute distress - Respiratory Respiratory: bilateral: CTA - Gastrointestinal General gastrointestinal: Present: normal bowel sounds, soft - Psychiatric Psychiatric: Present: A&O x's 3, appropriate affect - Labs CBC & Chem 7: 01/28/19 06:45 01/28/19 06:45 Labs: Abnormal Lab Results - Last 24 Hours (Table) 01/27/19 01/27/19 01/28/19 Range/Units 11:20 17:45 06:45 RBC 2.86 L 2.91 L 2.93 L (3.80-5.40) m/uL Hgb 7.2 L 7.4 L 7.4 L (11.4-16.0) gm/dL Hct 22.7 L 23.0 L 23.5 L (34.0-46.0) % MCV 79.6 L 79.1 L (80.0-100.0) fL RDW 18.7 H 18.4 H 18.5 H (11.5-15.5) % Glucose (74-99) mg/dL Calcium (8.4-10.2) mg/dL AST (14-36) U/L Total Protein (6.3-8.2) g/dL Albumin (3.5-5.0) g/dL 01/28/19 Range/Units 06:45 RBC (3.80-5.40) m/uL Hgb (11.4-16.0) gm/dL Hct (34.0-46.0) % MCV (80.0-100.0) fL RDW (11.5-15.5) % Glucose 100 H (74-99) mg/dL Calcium 8.2 L (8.4-10.2) mg/dL AST 37 H (14-36) U/L Total Protein 5.9 L (6.3-8.2) g/dL Albumin 3.4 L (3.5-5.0) g/dL Microbiology - Last 24 Hours (Table) 01/25/19 16:31 Blood Culture - Preliminary Blood No Growth after 48 hours Assessment and Plan (1) Ectopic Current Visit: Yes Status: Acute Code(s): O00.90 - UNSPECIFIED ECTOPIC WITHOUT INTRAUTERINE SNOMED Code(s): 30887545 (2) Acute blood loss anemia Current Visit: Yes Status: Acute Code(s): D62 - ACUTE POSTHEMORRHAGIC ANEMIA SNOMED Code(s): 841885019 (3) S/P laparoscopic procedure Current Visit: Yes Status: Acute Code(s): Z98.890 - OTHER SPECIFIED POSTPROCEDURAL STATES SNOMED Code(s): 166015622 Plan: We'll plan discharge home later today after medicine has seen this patient. Encourage increased ambulation and showers to alleviate some of the gas discomfort she is having. Tylenol No. 3/ibuprofen as needed for pain. Encouraged ibuprofen as a first line as the Tylenol No. 3 may encourage constipation. Patient is advised to make an appointment in the office in 2 weeks for a routine postoperative check. Labs are discussed with the patient today hemoglobin is noted to be stable. All questions are answered and patient will make an appointment and be seen in 2 weeks or sooner should the need arise.
--- NOTE | 2019-01-28 11:32 | P.DS ---
Providers Date of admission: 01/27/19 12:39 Expected date of discharge: 01/28/19 Attending physician: Fouzia Alfredo Consults: 01/25/19 22:48 Consult Physician Stat Consulting Provider: Armando Mesa Consult Reason/Comments: ab pain/ bhcg 53 Do you want consulting provider notified?: Already Contacted 01/25/19 22:49 Consult Physician Urgent Consulting Provider: Gregg Yost Consult Reason/Comments: Abdominal pain, ascites and colitis on computed tomography scan Do you want consulting provider notified?: Yes Primary care physician: Indu Khan [facility] Course: Diagnosis on discharge: 1. Abdominal pain with fever and leukocytosis. CT of abdomen and pelvis completed showing mild to moderate abdominal ascites. Positive ascites is not evident. There is suggestion of mild large bowel wall thickening in the transverse colon that could relate to mild nonspecific colitis. Transvaginal ultrasound completed showing no admexal mass. No evidence of intrauterine gestational sac. Free fluid in the pelvis. GI services have been consulted [facility]EE SOMMELIER service is following. Left ectopic , hemoperitoneum status post operative laparoscopy with left salpingectomy, evacuation of hemoperitoneum 2. Positive HCG. Per COFFEE SOMMELIER beta hCG repeated this morning demonstrate dropping levels indicating of failing still cannot differentiate between an ectopic and miscarriage. Awaiting input from GI services prior to making decision regarding methotrexate. 3. Anemia. Repeat CBC has been ordered per COFFEE SOMMELIER today at 3. Hemoglobin 7. 9. GI and [employer]OM[facility] services are following 4. History of GERD 5. History of iron deficiency anemia 6. History of previous 7. History of anxiety 8. History of nicotine dependence. Nicotine patch has been ordered. Patient educated greater than patient Hospital course: This is a 28-year-old female patient of Dr. Khan. Patient presents with complaints of abdominal pain. Patient reports that started approximately 7:30 AM yesterday patient reports that pain came on suddenly and was severe. Patient reports that she went to the bathroom try to have a bowel movement but the pain did not subside. Patient reports that pain did feel like an intense menstrual cramp. Patient reports that she did have episode of emesis which she reports is likely from her pain. Patient denies any other significant nausea. Patient denies diarrhea or vomiting. Patient also reports she had a temp of 100.2. Patient reports she had a take Tylenol and ibuprofen throughout the day which provided minimal improvement. Patient also reports that she had menstrual bleeding which she expected was due with her regular menstrual cycle. Patient denies any increase in bleeding compared to her normal menstrual cycle. Patient has a past medical history of GERD, anemia anxiety and smoker. Initial hCG level 53.5. CT of abdomen completed showing mild to moderate abdominal ascites. Cause for the ascites is not evident. There is suggestion of mild large bowel thickening in the transverse colon that could relate to mild nonspecific colitis. Transvaginal ultrasound completed showing no adnexal mass. No evidence of intrauterine gestational sac free fluid in the pelvis. Chest x- ray completed showing normal chest. No change. EKG completed showing normal sinus rhythm with normal EKG. Initial white blood cell 13.0. Patient also having drop in hemoglobin to 8.1. Consult placed for COFFEE SOMMELIER and GI services. Patient is currently resting comfortably in bed. Patient reports some improvement with abdominal pain. Patient does report control pain with Dilaudid pain meds. Patient denies any chest pain or shortness of breath. Patient denies nausea vomiting or diarrhea. Patient is still complaining of mid lower abdominal discomfort that has radiated to upper abdomen. Patient denies any urinary burning or frequency. On 01/27/2019 patient was seen and examined on the medical floor, she is feeling better since surgery she underwent operative laparoscopy with left salpingectomy, evacuation of hemoperitoneum for Left ectopic , hemoperitoneum. At this time patient is still complaining of mild abdominal pain otherwise no complaints is no fever or chills no headache or dizziness no chest pain no shortness of breath no cough no nausea or vomiting and no urinary symptoms On 01/28/2019 patient was seen and examined on the medical floor she has been evaluated by ERISA ATTORNEY and was cleared for discharge, hemoglobin remains low at 7.4 but not dropping anymore, patient was started on iron sulfate 325 mg once daily she will be discharged home today follow-up with primary care physician within 2-3 days, follow-up with gynecology in one week Plan - Discharge Summary Discharge Rx Participant: No New Discharge Prescriptions: New Ferrous Sulfate [Iron (65 MG Elemental)] 325 mg PO W/LUNCH tab Melatonin 5 mg PO HS PRN tablet PRN Reason: Insomnia Acetaminophen-Codeine 300-30mg [Tylenol w/codeine #3] 2 each PO Q6HR PRN tab PRN Reason: Severe Pain Continue Ibuprofen [Motrin Ib] 800 mg PO Q4H PRN PRN Reason: Pain Acetaminophen Tab [Tylenol] 500 mg PO Q6H PRN PRN Reason: Pain Discharge Medication List Acetaminophen Tab [Tylenol] 500 mg PO Q6H PRN 01/25/19 [History] Ibuprofen [Motrin Ib] 800 mg PO Q4H PRN 01/25/19 [History] Acetaminophen-Codeine 300-30mg [Tylenol w/codeine #3] 2 each PO Q6HR PRN tab 01/28/19 [Rx] Ferrous Sulfate [Iron (65 MG Elemental)] 325 mg PO W/LUNCH tab 01/28/19 [Rx] Melatonin 5 mg PO HS PRN tablet 01/28/19 [Rx] Follow up Appointment(s)/Referral(s): Indu Khan MD [Primary Care Provider] - 1-2 days
[2019-01-28] MEDS ORDERED: FERROUS SULFATE 325 MG TAB PO SCH (12:30)
== END 2019-01-28 11:45 | disposition home or self-care (01) | DRG 817 ==
LOC: EC 15:50 → 6PED 22:48 → OBSVTOIN 01-27 12:39
PROVIDERS: ADMIT Internal Medicine; ATTEND Internal Medicine
PROC: 10T24ZZ Resection of Products of Conception, Ectopic, Percutaneous Endoscopic Approach (ICD-10-PCS; 2019-01-27)
PROC: 0W9G4ZZ Drainage of Peritoneal Cavity, Percutaneous Endoscopic Approach (ICD-10-PCS; 2019-01-27)
PROC: 0UT64ZZ Resection of Left Fallopian Tube, Percutaneous Endoscopic Approach (ICD-10-PCS; principal; 2019-01-27 10:12)
DX: O00.90 Unspecified ectopic pregnancy without intrauterine pregnancy (principal); K66.1 Hemoperitoneum; R18.8 Other ascites; D62 Acute posthemorrhagic anemia; Z98.891 History of uterine scar from previous surgery; D50.9 Iron deficiency anemia, unspecified; F17.210 Nicotine dependence, cigarettes, uncomplicated; F41.9 Anxiety disorder, unspecified; K21.9 Gastro-esophageal reflux disease without esophagitis; K52.9 Noninfective gastroenteritis and colitis, unspecified; G47.00 Insomnia, unspecified; Z88.2 Allergy status to sulfonamides
CPT/HCPCS: 36415; 71046; 74177; 76801; 76817; 76830; 76856; 80053; 81001; 82150; 83605; 83690; 84702; 84703; 85025; 85027; 85610; 85730; 86850; 86900; 86901; 87040; 87086; 88305; 93005; 96361; 96374; 96375; 96376; 99285

== ENCOUNTER → 2019-05-22 | Outpatient (CLI) | payer OTHER ==
--- NOTE | 2019-05-23 10:19 | XR ---
EXAMINATION TYPE: XR scapula RT DATE OF EXAM: 05/22/2019 COMPARISON: None HISTORY: Pain upper back and shoulder blade TECHNIQUE: 2 view right scapula FINDINGS: No acute fractures are evident. The femoral head articulates with the glenoid. The acromioc lavicular junction is normal. Coracoid process appears normal. IMPRESSION: 1. Normal two-view scapula
--- NOTE | 2019-05-23 10:20 | XR ---
EXAMINATION TYPE: XR thoracic spine complete DATE OF EXAM: 05/22/2019 COMPARISON: None HISTORY: Back pain TECHNIQUE: Three-view thoracic spine FINDINGS: There are 12 thoracic type vertebral bodies. Pedicles are intact. Disc heights are preserve d. Vertebral body heights are preserved. There is slight exaggeration of thoracic kyphosis. Alignment is otherwise normal. IMPRESSION: 1. Mild thoracic kyphosis. 2. No suspicious acute changes
== END | disposition home or self-care (01) ==
LOC: RADXRMAIN 16:03
PROVIDERS: ATTEND Family Medicine
DX: M40.294 Other kyphosis, thoracic region (principal); M25.511 Pain in right shoulder
CPT/HCPCS: 72072

== ENCOUNTER 2020-11-16 16:36 | Emergency (ER) | payer OTHER ==
[2020-11-16 16:43] VITALS: RESP 18
[2020-11-16] MEDS ORDERED: SODIUM CHLORIDE 0.9% 1,000 ML IV STA (16:57)
[2020-11-16] MEDS ORDERED: MAG HYDROX/AL HYDROX/SIMETH 30 ML, HYOSCYAMINE ELIXIR 10 ML, LIDOCAINE VISCOUS 2% 10 ML PO STA ×3 (16:59)
[2020-11-16] MEDS ORDERED: ONDANSETRON 4 MG/2 ML VIAL IVP STA (16:59)
--- NOTE | 2020-11-16 17:17 | ED ---
Abdominal Pain HPI - General Source: patient Mode of arrival: ambulatory Limitations: no limitations <Yunior Gandara - Last Filed: 11/16/20 18:26> <Delilah Hanson - Last Filed: 11/18/20 02:01> - General Chief Complaint: Abdominal Pain Stated Complaint: Abd Pain Time Seen by Provider: 11/16/20 16:46 - History of Present Illness Initial Comments: 30-year-old female with history of GERD presents to emergency Department with chief complaint of abdominal pain. Patient reports left upper quadrant epigastric abdominal pain ongoing for the past several days. Patient reports patient occasionally gets worse when she is laying flat. She does report some nausea but no vomiting or diarrhea. She denies any chest pain or shortness of breath. States she went to an urgent care and was advised to come to emergency department for evaluation. Patient reports drinking plenty of coffee brought today and soda (Yunior Gandara) - Related Data Home Medications Medication Instructions Recorded Confirmed Acetaminophen Tab [Tylenol] 500 mg PO Q6H PRN 01/25/19 11/16/20 Ibuprofen [Motrin Ib] 800 mg PO Q4H PRN 01/25/19 11/16/20 Previous Rx's Medication Instructions Recorded Omeprazole [PriLOSEC] 20 mg PO AC-BRKFST #14 cap 11/16/20 Allergies Allergy/AdvReac Type Severity Reaction Status Date / Time Sulfa (Sulfonamide Allergy Intermediate Anaphylaxis Verified 11/16/20 17:50 Antibiotics) Review of Systems ROS Other: All systems not noted in ROS Statement are negative. <Yunior Gandara - Last Filed: 11/16/20 18:26> ROS Other: All systems not noted in ROS Statement are negative. <Delilah Hanson - Last Filed: 11/18/20 02:01> ROS Statement: Those systems with pertinent positive or pertinent negative responses have been documented in the HPI. Past Medical History Past Medical History: GERD/Reflux Additional Past Medical History / Comment(s): Pt states just dx with anemia, taking iron History of Any Multi-Drug Resistant Organisms: None Reported Past Surgical History: Section Additional Past Surgical History / Comment(s): Facial reconstruction on upper jaw. Past Anesthesia/Blood Transfusion Reactions: No Reported Reaction Past Psychological History: Anxiety Smoking Status: Never smoker Past Alcohol Use History: Occasional Past Drug Use History: Marijuana - Past Family History Mother Family Medical History: No Reported History Father Family Medical History: No Reported History <NicholYunior Raji Last Filed: 11/16/20 18:26> General Exam Limitations: no limitations General appearance: alert, in no apparent distress Head exam: Present: atraumatic, normocephalic, normal inspection Eye exam: Present: normal appearance, PERRL, EOMI Pupils: Present: normal accommodation ENT exam: Present: normal exam, normal oropharynx, mucous membranes moist, TM's normal bilaterally, normal external ear exam Neck exam: Present: normal inspection, full ROM. Absent: tenderness Respiratory exam: Present: normal lung sounds bilaterally. Absent: respiratory distress, wheezes, rales, rhonchi, stridor, chest wall tenderness, accessory muscle use Cardiovascular Exam: Present: regular rate, normal rhythm, normal heart sounds. Absent: bradycardia GI/Abdominal exam: Present: soft, tenderness (Mild left upper quadrant tenderness.). Absent: distended, guarding, rebound, rigid Extremities exam: Present: normal inspection, full ROM, normal capillary refill. Absent: tenderness, pedal edema, joint swelling Back exam: Present: normal inspection, full ROM. Absent: tenderness, CVA tenderness (R), CVA tenderness (L) Neurological exam: Present: alert, oriented X3 Psychiatric exam: Present: normal affect, normal mood Skin exam: Present: warm, dry, intact, normal color <NicholYunior Alegria Last Filed: 11/16/20 18:26> Course Vital Signs 11/16/20 11/16/20 11/16/20 16:40 17:40 18:21 Temperature 98.3 F Pulse Rate 96 83 80 Respiratory 18 18 18 Rate Blood Pressure 116/104 143/81 131/77 O2 Sat by Pulse 98 97 100 Oximetry 11/16/20 19:29 Temperature 97.7 F Pulse Rate 68 Respiratory 18 Rate Blood Pressure 124/59 O2 Sat by Pulse 98 Oximetry Medical Decision Making - Lab Data Result diagrams: 11/16/20 17:25 11/16/20 17:25 <NicholYunior Raji Last Filed: 11/16/20 18:26> - Lab Data Result diagrams: 11/16/20 17:25 04/18/21 17:25 <Delilah Hanson - Last Filed: 11/18/20 02:01> - Medical Decision Making 30-year-old female presents to the emergency department with a chief complaint of abdominal pain. On physical examination, patient does have mild left upper quadrant abdominal tenderness. She is otherwise resting comfortably in bed and does not appear to be significant discomfort. Patient was given IV fluids, antiemetics and a GI cocktail. CBC unremarkable. CMP reveals mild transaminitis. UA unremarkable. Negative . On reevaluation, patient reports resolution of symptoms. I discussed suspect possible gastritis. I will prescribe omeprazole for 2 weeks. Advised her to limit acidic drinks and foods. Return parameters were thoroughly discussed the patient was resting agreeable. Case discussed with physician (Yunior Gandara) I was available for consultation in the emergency department. The history and physical exam were done by the midlevel provider. I was consulted for this patients care. I reviewed the case with the midlevel provider and based on their presentation of the patient, I agree with the assessment, medical decision making and plan of care as documented. Chart was dictated using [employer] dictation software. Attempts were made to correct any dictation errors however some typographical errors may persist. Patient was seen during a national state of emergency due to the Covid-19 anh maki. (Delilah Hanson) - Lab Data Lab Results 11/16/20 11/16/20 11/16/20 Range/Units 17:21 17:21 17:25 WBC 7.6 (3.8-10.6) k/uL RBC 4.06 (3.80-5.40) m/uL Hgb 12.5 (11.4-16.0) gm/dL Hct 35.3 (34.0-46.0) % MCV 87.0 (80.0-100.0) fL MCH 30.7 (25.0-35.0) pg MCHC 35.3 (31.0-37.0) g/dL RDW 13.4 (11.5-15.5) % Plt Count 212 (150-450) k/uL MPV 8.5 Neutrophils % 59 % Lymphocytes % 31 % Monocytes % 5 % Eosinophils % 4 % Basophils % 1 % Neutrophils # 4.5 (1.3-7.7) k/uL Lymphocytes # 2.4 (1.0-4.8) k/uL Monocytes # 0.4 (0-1.0) k/uL Eosinophils # 0.3 (0-0.7) k/uL Basophils # 0.0 (0-0.2) k/uL Sodium (137-145) mmol/L Potassium (3.5-5.1) mmol/L Chloride (98-107) mmol/L Carbon Dioxide (22-30) mmol/L Anion Gap mmol/L BUN (7-17) mg/dL Creatinine (0.52-1.04) mg/dL Est GFR (CKD-EPI)AfAm (>60 ml/min/1.73 sqM) Est GFR (CKD-EPI)NonAf (>60 ml/min/1.73 sqM) Glucose (74-99) mg/dL Calcium (8.4-10.2) mg/dL Total Bilirubin (0.2-1.3) mg/dL AST (14-36) U/L ALT (4-34) U/L Alkaline Phosphatase (38-126) U/L Total Protein (6.3-8.2) g/dL Albumin (3.5-5.0) g/dL Amylase (30-110) U/L Lipase (23-300) U/L Urine Color Light Yellow Urine Appearance Cloudy H (Clear) Urine pH 7.0 (5.0-8.0) Ur Specific [place] 1.023 (1.001-1.035) Urine Protein 1+ H (Negative) Urine Glucose (UA) Negative (Negative) Urine Ketones Negative (Negative) Urine Blood Negative (Negative) Urine Nitrite Negative (Negative) Urine Bilirubin Negative (Negative) Urine Urobilinogen <2.0 (<2.0) mg/dL Ur Leukocyte Esterase Negative (Negative) Urine RBC 1 (0-5) /hpf Urine WBC Clumps Few H (None) /hpf Ur Squamous Epith Cells 2 (0-4) /hpf Urine Bacteria Moderate H (None) /hpf Urine Mucus Rare H (None) /hpf Urine Yeast (Budding) Many H (None) /hpf Urine HCG, Qual Not Detected (Not Detectd) 11/16/20 Range/Units 17:25 WBC (3.8-10.6) k/uL RBC (3.80-5.40) m/uL Hgb (11.4-16.0) gm/dL Hct (34.0-46.0) % MCV (80.0-100.0) fL MCH (25.0-35.0) pg MCHC (31.0-37.0) g/dL RDW (11.5-15.5) % Plt Count (150-450) k/uL MPV Neutrophils % % Lymphocytes % % Monocytes % % Eosinophils % % Basophils % % Neutrophils # (1.3-7.7) k/uL Lymphocytes # (1.0-4.8) k/uL Monocytes # (0-1.0) k/uL Eosinophils # (0-0.7) k/uL Basophils # (0-0.2) k/uL Sodium 135 L (137-145) mmol/L Potassium 4.2 (3.5-5.1) mmol/L Chloride 105 (98-107) mmol/L Carbon Dioxide 23 (22-30) mmol/L Anion Gap 7 mmol/L BUN 18 H (7-17) mg/dL Creatinine 0.57 (0.52-1.04) mg/dL Est GFR (CKD-EPI)AfAm >90 (>60 ml/min/1.73 sqM) Est GFR (CKD-EPI)NonAf >90 (>60 ml/min/1.73 sqM) Glucose 89 (74-99) mg/dL Calcium 9.0 (8.4-10.2) mg/dL Total Bilirubin 0.3 (0.2-1.3) mg/dL AST 43 H (14-36) U/L ALT 72 H (4-34) U/L Alkaline Phosphatase 73 (38-126) U/L Total Protein 7.3 (6.3-8.2) g/dL Albumin 4.3 (3.5-5.0) g/dL Amylase 49 (30-110) U/L Lipase 131 (23-300) U/L Urine Color Urine Appearance (Clear) Urine pH (5.0-8.0) Ur Specific [place] (1.001-1.035) Urine Protein (Negative) Urine Glucose (UA) (Negative) Urine Ketones (Negative) Urine Blood (Negative) Urine Nitrite (Negative) Urine Bilirubin (Negative) Urine Urobilinogen (<2.0) mg/dL Ur Leukocyte Esterase (Negative) Urine RBC (0-5) /hpf Urine WBC Clumps (None) /hpf Ur Squamous Epith Cells (0-4) /hpf Urine Bacteria (None) /hpf Urine Mucus (None) /hpf Urine Yeast (Budding) (None) /hpf Urine HCG, Qual (Not Detectd) Disposition Is patient prescribed a controlled substance at d/c from ED?: No Time of Disposition: 18:28 <Yunior Gandara - Last Filed: 11/16/20 18:26> <Delilah Hanson - Last Filed: 11/18/20 02:01> Clinical Impression: Gastritis, Abdominal pain Disposition: HOME SELF-CARE Condition: Stable Instructions (If sedation given, give patient instructions): Gastritis (DC) Additional Instructions: Take medication as directed. Avoid drinking plenty of coffee, acidic foods or drinks.Please return to the Emergency Department if symptoms worsen or any other concerns. Follow with the primary care physician Prescriptions: Omeprazole [PriLOSEC] 20 mg PO -BRKFST #14 cap Referrals: Indu Khan MD [Primary Care Provider] - 1-2 days
[2020-11-16 17:37] LABS: Basophils % (A) 1 %; Eosinophils # (A) 0.3 k/uL (0-0.7); Eosinophils % (A) 4 %; HCT 35.3 % (34.0-46.0); HGB 12.5 gm/dL (11.4-16.0); Lymphocytes # (A) 2.4 k/uL (1.0-4.8); Lymphocytes % (A) 31 %; MCH 30.7 pg (25.0-35.0); MCHC 35.3 g/dL (31.0-37.0); Mean Platelet Volume 8.5; Monocytes # (A) 0.4 k/uL (0-1.0); Monocytes % (A) 5 %; Neutrophils # (A) 4.5 k/uL (1.3-7.7); Neutrophils % (A) 59 %; Platelet Count 212 k/uL (150-450); RBC 4.06 m/uL (3.80-5.40); RDW 13.4 % (11.5-15.5); WBC 7.6 k/uL (3.8-10.6)
[2020-11-16 17:42] LABS: Appearance,Urine Cloudy (Clear); Bacteria,Urine Moderate /hpf; Bilirubin,Urine Negative (Negative); Blood,Urine Negative (Negative); Budding Yeast,Urine Many /hpf; Color,Urine Light Yellow; Glucose,Urine (UA) Negative (Negative); Ketones,Urine Negative (Negative); Leukocyte Esterase,Urine Negative (Negative); Mucus,Urine Rare /hpf; Nitrite,Urine Negative (Negative); Protein,Urine 1+ (Negative); RBC,Urine 1 /hpf (0-5); Specific Gravity,Urine 1.023 (1.001-1.035); Squamous Epithelial Cell,Urine 2 /hpf (0-4); Urobilinogen,Urine <2.0 mg/dL (<2.0)
[2020-11-16 17:51] LABS: ALT 72 U/L (4-34); AST 43 U/L (14-36); African American GFR (CKD) >90 (>60 ml/min/1.73 sqM); Albumin 4.3 g/dL (3.5-5.0); Alkaline Phosphatase 73 U/L (38-126); Amylase 49 U/L (30-110); Anion Gap 7 mmol/L; Blood Urea Nitrogen 18 mg/dL (7-17); Carbon Dioxide 23 mmol/L (22-30); Chloride 105 mmol/L (98-107); Glucose 89 mg/dL (74-99); Lipase 131 U/L (23-300); Non-African American GFR(CKD) >90 (>60 ml/min/1.73 sqM); Potassium 4.2 mmol/L (3.5-5.1); Sodium 135 mmol/L (137-145); Total Bilirubin 0.3 mg/dL (0.2-1.3); Total Protein 7.3 g/dL (6.3-8.2)
[2020-11-16 19:30] VITALS: BP 124/59; PULSE 68; TEMP 97.7
== END 2020-11-16 19:32 | disposition home or self-care (01) ==
LOC: EC 16:36
DX: K29.70 Gastritis, unspecified, without bleeding (principal); K21.9 Gastro-esophageal reflux disease without esophagitis; F12.90 Cannabis use, unspecified, uncomplicated; F41.9 Anxiety disorder, unspecified; Z79.899 Other long term (current) drug therapy
CPT/HCPCS: 36415; 80053; 82150; 83690; 85025; 81001; 81025; 99284; 96374; 96361; J2405

== ENCOUNTER → 2023-01-27 | Outpatient (CLI) | payer OTHER ==
--- NOTE | 2023-01-27 21:50 | US ---
EXAMINATION TYPE: US kidneys/renal and bladder DATE OF EXAM: 01/27/2023 COMPARISON: CT abdomen and pelvis 2018 CLINICAL INDICATION: Female, 32 years old with history of R80.8 PROTEINURIA; protein in urine EXAM MEASUREMENTS: Right Kidney: 11.2x5.0x5.9 cm Left Kidney: 11.5x5.1x5.3 cm Right Kidney: No hydronephrosis or masses seen Left Kidney: No hydronephrosis or masses seen Bladder: wnl Bilateral Jets seen: Yes There is no evidence for hydronephrosis at this point in time. No nephrolithiasis is seen. No leonardo s are identified. The urinary bladder is adequately distended. Bilateral ureteral jets are seen. exam technically difficult due to large body habitus IMPRESSION: Slightly suboptimal but otherwise unremarkable study.
== END | disposition home or self-care (01) ==
LOC: RADUSWWP 16:12
PROVIDERS: ATTEND Family Medicine
DX: R80.8 Other proteinuria (principal)
CPT/HCPCS: 76770